=== PATIENT | female | born 1965 | race Caucasian/White ===

== ENCOUNTER 2020-10-04 01:29 | Outpatient (CLI) | payer BC, SELFPAY ==
[2020-10-05 03:00] LABS: SARS-CoV-2 RNA PCR Negative
== END 2020-10-04 01:30 | disposition home or self-care (01) ==
LOC: ANHCOVIDDT 01:29
PROVIDERS: PCP Internal Medicine; Visit Provider Internal Medicine Gastroenterology
DX: Z01.812 Encounter for preprocedural laboratory examination (principal); Z20.828 Contact with and (suspected) exposure to other viral communicable diseases
CPT/HCPCS: 87635; C9803; U0003

== ENCOUNTER 2020-10-06 02:09 | Day surgery (SDC) | payer BC, SELFPAY ==
[2020-10-03 14:49] VITALS: BMI 31.1
[2020-10-06] MEDS: LACTATED RINGERS 1,000 ML 150 ML IV CONT (09:03)
[2020-10-06 09:04] VITALS: BP 131/91; PULSE 69; RESP 18; TEMP 36.5; O2SAT 99; BMI 31.1
--- NOTE | 2020-10-06 09:16 | WPDANESEPPF ---
Anes - Initial Pre Proc Eval Procedure: Operation Date: 10/06/20 10:00 Proposed Procedures p Screening Colonoscopy - Wolf Nixon MD Date/Time: 10/06/20 09:16 Surgeon: Wolf Nixon MD Pre Op Diagnosis: Neoplasm Screening Patient Data Age: 55 Gender: F Height: 5 ft 8 in Weight: 93 kg Last Vital Signs Temp 36.5 C 10/06/20 09:04 Pulse 69 10/06/20 09:04 Resp 18 10/06/20 09:04 BP 131/91 H 10/06/20 09:04 Pulse Ox 99 10/06/20 09:04 Allergies Allergy/AdvReac Type Severity Reaction Status Date / Time No Known Allergies Allergy Unverified 10/06/20 08:48 Home Medications Medication Instructions Recorded Confirmed Type No Home Medications 10/06/20 10/06/20 History Patient hx anesthesia problems: none Family hx anesthesia problems: none PMFSH Surgical History Surgical History H/O bilateral breast reduction surgery Social History Social History Smoking status: Never smoker Alcohol intake: current Substance use: never Substance use type: does not use Living arrangements: with family Spiritual care concerns: No Anes - Eval Final PreProcedure Day of Procedure 10/06/20 09:16 Patient weight: obese Heart: regular rate and rhythm Lungs: clear to auscultation Airway: Mallampati scale class II Neurological: alert and oriented Last oral intake: >/= 8 hours ASA classification: II Emergent: no Anesthetic plan: proceed Anesthesia type and monitoring: general GIVS and standard monitoring Informed Consent: The patient's anesthetic plan and its attendant risks and benefits were discussed with the patient/family/POA. Questions were solicited and answers provided to the satisfaction of the patient/family/POA.
--- NOTE | 2020-10-06 09:24 | P.HP_ITS ---
History of Present Illness History of Present Illness Consent: Risks, benefits, and alternatives have been discussed and questions answered. Patient agrees to proceed with procedure. Chief complaint: Neoplasm Screening Narrative: Jennifer Strauss is a 55 year old female here for first screening colonoscopy Review of Systems Constitutional: Constitutional: Denies headache(s) and Denies weakness Eyes: Eyes: Denies blurry vision ENT: Reports Normal hearing present, Denies headache(s) and Denies neck pain Cardiovascular: Cardiovascular: Denies chest pain and Denies dyspnea Respiratory: Respiratory: Denies dyspnea Gastrointestinal: Gastrointestinal: Reports no additional gastrointestinal complaints Genitourinary: Genitourinary: Denies dysuria Musculoskeletal: Musculoskeletal: Denies neck pain Integumentary/Breasts: Skin/Breast: Denies dry skin Neurologic: Reports Normal hearing present, Denies headache(s) and Denies weakness Psychiatric: Psychiatric: Denies anxiety Endocrine: Endocrine: Denies change in body appearance Hematologic/Lymphatic: Hematologic/Lymphatic: Denies easy bleeding Allergic/Immunologic: Allergic/Immunologic: Denies urticaria [facility] Past Medical History Medical History (Updated 10/06/20 @ 09:29 by Wolf Nixon MD) Colon cancer screening Surgical History Surgical History H/O bilateral breast reduction surgery Social History Social History Smoking status: Never smoker Alcohol intake: current Substance use: never Substance use type: does not use Living arrangements: with family Spiritual care concerns: No Meds Home Medications and Allergies Home Medications Medication Instructions Recorded Confirmed Type No Home Medications 10/06/20 10/06/20 History Allergies Allergy/AdvReac Type Severity Reaction Status Date / Time No Known Allergies Allergy Unverified 10/06/20 08:48 Vital Signs Vital Signs - 24 hr 10/06/20 09:04 Temperature 97.7 F Pulse Rate 69 Respiratory Rate 18 Blood Pressure 131/91 H Pulse Oximetry 99 Exam Const: General: comfortable and no acute distress HENMT: General nose exam: Normal nares present Eyes: General: appearance normal, both eyes and all related structures Neck: Neck: no JVD Resp: Auscultation: clear to auscultation bilaterally Cardio: Rate: regular rate Rhythm: regular rhythm GI: Inspection: non-distended GI Palp: Yes Soft to palpation Skin: General skin exam: normal color Neuro: General: gait normal Speech: normal speech Extrem: General: normal to inspection Psych: Mental Status: mental status grossly normal Assessment and Plan Assessment and plan (1) Colon cancer screening: Code(s): Z12.11 - Encounter for screening for malignant neoplasm of colon Status: Acute Assessment and Plan: will proceed with colonoscopy
[2020-10-06 09:54] VITALS: BP 106/57; PULSE 62; RESP 16; O2SAT 97
[2020-10-06 10:04] VITALS: BP 102/63; PULSE 60; RESP 16; O2SAT 97
[2020-10-06 10:14] VITALS: BP 108/53; PULSE 62; RESP 18; O2SAT 98
== END 2020-10-06 10:30 | disposition home or self-care (01) ==
PROVIDERS: PCP Internal Medicine; Visit Provider Internal Medicine Gastroenterology
PROC: 0DJD8ZZ Inspection of Lower Intestinal Tract, Via Natural or Artificial Opening Endoscopic (ICD-10-PCS; CPT 45378; principal; 2020-10-06 10:00)
DX: Z12.11 Encounter for screening for malignant neoplasm of colon (principal); D12.0 Benign neoplasm of cecum; D12.3 Benign neoplasm of transverse colon
CPT/HCPCS: 45385; 45381; 88305; J2704; J7120

== ENCOUNTER 2021-01-02 00:15 | Emergency (ER) | payer OTHER, BC, SELFPAY ==
--- NOTE | ~2021-01-02 | XR_ITS ---
XR lumbar spine 2-3V DATE: 01/02/2021 01:07 INDICATION: Heavy boxes landed on patient's back, causing patient to fall. Back pain. TECHNIQUE: AP, lateral, coned lateral lumbosacral views COMPARISON: None FINDINGS: Normal alignment of the lumbar spine. No fracture or bone destruction or spondylolisthesis. There is diffuse osteopenia. Mild osteoarthritis At L5-S1. The remaining lumbar interspaces are well preserved. The sacroiliac joints are intact. IMPRESSION: Osteopenia; no evidence of lumbar spine fracture Reviewed, dictated and finalized at location A. [employer]
[2021-01-02 00:23] VITALS: BP 134/87; PULSE 75; RESP 16; TEMP 36.6; O2SAT 96
[2021-01-02 00:32] LABS: Glucose Point of Care 497 (65-105)
[2021-01-02] MEDS: KETOROLAC 30 MG/ML VIAL (*BKC) IV PUSH (01:08)
[2021-01-02] MEDS: diazePAM INJ (*CRX) 10 MG/2 ML SYRINGE 5 MG IV PUSH (01:18)
--- NOTE | 2021-01-02 03:13 | ED.FALL ---
HPI - Fall General Chief Complaint: Fall Stated Complaint: lower back pain; boxes fell on back Time Seen by Provider: 01/02/21 00:17 History of Present Illness HPI Narrative: Patient is a 55-year-old female who presents ER with low back pain. Patient was working local [employer] is when she turned around and was struck in the back by boxes containing computer desk. Encouraged her to jerk move forward. She developed pain in her low back. Reports she feels like she is having spasms. No radiation. No numbness or tingling to the lower extremities or groin. Has not taken any pain medication. Did not strike her head or lose consciousness. Related Data Allergies Allergy/AdvReac Type Severity Reaction Status Date / Time No Known Allergies Allergy Unverified 10/06/20 08:48 Review of Systems Gastrointestinal: Gastrointestinal: Denies nausea and Denies vomiting Musculoskeletal: Musculoskeletal: Reports back pain, Denies arthralgias, Denies joint swelling and Reports muscle cramps Neurologic: Denies syncope, Denies headache(s), Denies focal weakness and Denies numbness PMFSH Past Medical History Medical History (Updated 01/02/21 @ 03:16 by Roberth Peng MD) Colon cancer screening Surgical History Surgical History H/O bilateral breast reduction surgery Social History Social History Smoking status: Never smoker Alcohol intake: current Substance use: never Substance use type: does not use Spiritual care concerns: No Exam Narrative: Exam Narrative: GENERAL: Well-appearing, well-nourished, and in no acute distress. HEAD: Normocephalic, atraumatic. CHEST: Clear to auscultation. No respiratory distress. HEART: Regular rate and rhythm. Normal peripheral pulses. EXTREMITIES: Normal range of motion. No edema. Back: Midline tenderness of L2 and L5 as well as bilateral paraspinal muscular tenderness in this region. SKIN: Warm, dry, no rash. NEURO: No focal deficits. Alert and oriented x3. PSYCH: Normal mood and affect. Course Course Emergency Course: Pain markedly improved with Valium and Toradol. Discharge home with supportive care. Vital Signs Vital signs: Vital Signs Temperature 97.8 F 01/02/21 00:23 Pulse Rate 75 02/02/21 00:23 Respiratory Rate 16 01/02/21 00:23 Blood Pressure 134/87 01/02/21 00:23 Pulse Oximetry 96 01/02/21 00:23 Temperature 97.8 F 01/02/21 00:23 Pulse Rate 75 01/02/21 00:23 Respiratory Rate 16 01/02/21 00:23 Blood Pressure 134/87 01/02/21 00:23 Pulse Oximetry 96 01/02/21 00:23 MDM - Fall Lab Data Labs: Lab Results 01/02/21 Range/Units 00:29 POC Capillary Glucose 497 H (65-105) mg/dl Imaging Data My impression: X-ray lumbar: No acute process. Discharge Plan Discharge Clinical Impression: Low back strain Patient Disposition: Home, Self-Care Condition: Stable Instructions: Low Back Strain (ED) Additional Instructions: Return to the ER if you have increased pain in your back, you develop lower extremity weakness/numbness/paralysis, you have numbness or tingling in your private parts, or you are unable to control your ability to urinate/stool. Prescriptions: New cyclobenzaprine 10 mg tablet 10 mg PO TID PRN (Reason: muscle spasm) Qty: 20 RF: 0 naproxen 500 mg tablet 500 mg PO BID Qty: 14 RF: 0 Follow-up/Referrals: Mo Stephenson MD [Primary Care Provider] - 1 Week
[2021-01-02 03:20] VITALS: BP 128/78; PULSE 71; RESP 16; O2SAT 98
== END 2021-01-02 03:20 | disposition home or self-care (01) ==
PROVIDERS: Emergency Provider Emergency Medicine; PCP Internal Medicine
DX: S39.012A Strain of muscle, fascia and tendon of lower back, initial encounter (principal); W22.8XXA Striking against or struck by other objects, initial encounter
CPT/HCPCS: 72100; 82948; 96374; 96375; 99284; J1885; J3360

== ENCOUNTER 2025-08-22 09:25 | Inpatient (IN) | payer BC, SELFPAY ==
--- NOTE | ~2025-08-22 | XR_ITS ---
EXAMINATION: XR toe 1st LT min 2V, 08/22/2025 10:35 CDT HISTORY: diabetic ulcer/cellulitis x1 WEEK COMPARISON: No comparisons available. Findings: There are destructive changes noted of the distal aspect distal phalanx. No significant degenerative changes. Soft tissues unremarkable. Impression: Osteomyelitis Reviewed, dictated and finalized at location A. Impression: Osteomyelitis
[2025-08-22 09:33] VITALS: BP 112/88; PULSE 87; RESP 18; TEMP 36.4; O2SAT 99
--- OUTSIDE RECORDS SUMMARY | 2025-08-22 10:17 | XMS_ITS | Clinical Summary ---
Author Organization [facility] [address] Address [address] [place] [address] Care Team Providers Care Iron Bender Name Role Phone Marlon Jeronimo MD Primary Care Provider [phone] Allergies No known active allergies Medications No known medications Social History Tobacco Use Types Packs/Day Years Used Date Smoking Tobacco: Never Smokeless Tobacco: Never Alcohol Use Standard Drinks/Week Comments Yes 0 (1 standard drink = 0.6 oz pur e alcohol) occasional Comments No Sex and Gender Information Value Date Recorded Sex Assigned at Not on file Legal Sex Female 1:19 PM POLICE SHIFT COMMANDER Gender Identity Not on file Sexual Orientation Not on file Last Filed Vital Signs Vital Sign Reading Time Taken Comments Blood Pressure 139/90 11/25/2018 1:58 PM POLICE SHIFT COMMANDER Pulse - - Temperature 36.3 C (97.4 F) 11/25/2018 1:58 PM POLICE SHIFT COMMANDER Respiratory Rate 16 11/25/2018 1:58 PM POLICE SHIFT COMMANDER Oxygen Saturation 100% 11/25/2018 1:58 PM POLICE SHIFT COMMANDER Inhaled Oxygen Concentration - - Weight 99.8 kg (220 lb) 11/25/2018 1:58 PM POLICE SHIFT COMMANDER Height 172.7 cm (5' 8) 11/25/2018 1:58 PM POLICE SHIFT COMMANDER Body Mass Index 33.45 11/25/2018 1:58 PM POLICE SHIFT COMMANDER Plan of Treatment Health Maintenance Due Date Last Done Comments DTAP/TDAP/TD VACCINES (1 - Tdap) 1986 HEPATITIS B VACCINES (1 of 3 - 19+ 3-dose series) 05/01 HPV/Cotest (21-29) 1988 CERVICAL CANCER SCREENING 1997 HPV/Cotest (30-65) 1997 PAP SMEAR 1997 BREAST CANCER SCREENING 2007 COLORECTAL SCREENING 2012 Colorectal Cancer Screening 2012 FIT-DNA Q 3 years 2012 FIT/FOBT Q 1 year 2012 Flex Sig/CT Colonography Q 5 years 2012 ZOSTER VACCINE (1 of 2) 2017 INFLUENZA VACCINE (#1) 2025 [place] [address] BCBS BLUE ACCESS/TRUE BLUE PPO Care Teams Iron Bender Relationship Specialty Start Date End Date Marlon Jeronimo MD [address] [facility] [address] [place] [address] PCP - General Internal Medicine 11/25/18
--- OUTSIDE RECORDS SUMMARY | 2025-08-22 10:17 | XMS_ITS | Clinical Summary ---
Author Organization [facility] Address [address] [place] [address] Care Team Providers Care Information Technology Advisor Name Role Phone Ki Rodriguez MD Primary Care Provider [phone] Source Comments [facility],non-owned Affiliates and Associated Physician Practices is amultiple site organization consisting of ambulatory clinics and hospital sitesin [place], [place], [place]. This disclosure is being madepursuant to the Care Everywhere program and may not contain all information available regarding this patient. Last updated 18.[facility] [employer] Social History Tobacco Use Types Packs/Day Years Used Date Smoking Tobacco: Never Assessed Comments Unknown Sex and Gender Information Value Date Recorded Sex Assigned at Not on file Legal Sex Female 6:15 AM RIG HAND Gender Identity Not on file Sexual Orientation Not on file Last Filed Vital Signs Vital Sign Reading Time Taken Comments Blood Pressure - - Pulse - - Temperature - - Respiratory Rate - - Oxygen Saturation - - Inhaled Oxygen Concentration - - Weight 109.3 kg (241 lb) 08/17/2015 9:24 AM CDT Height 167.6 cm (5' 6) 08/17/2015 9:24 AM CDT Body Mass Index 38.9 08/17/2015 9:24 AM CDT Plan of Treatment Health Maintenance Due Date Last Done Comments COLOGUARD (AGES 45-75) - COL ON CA SCREENING 1967 COLON MONITORING 1967 COLONOSCOPY - COLON CA SCREENING 1967 CT COLONOGRAPHY - COLON CA SCREENING 1967 Colorectal Cancer Screening 1967 FIT - COLON CA SCREENING 1967 FLEX SIG - COLON CA SCREENING 1967 LIPID TESTING 1967 MAMMOGRAM 1967 HIV SCREENING 1982 HEPATITIS C SCREENING 05/13/1985 DTAP/TDAP/TD VACCINES (1 - Tdap) 1986 HEPATITIS B VACCINE (1 of 3 - 19+ 3-dose series) 1986 PNEUMOCOCCAL VACCINE 50+ (1 of 1 - PCV) 2017 ZOSTER VACCINE (1 of 2) 2017 DEPRESSION SCREENING 12/01/2024 COVID-19 VACCINE (1 - 2023-2 5 season) 2025 INFLUENZA VACCINE (#1) 2025 HIB VACCINE Aged Out No longer eligi ble based on patient's age to complete this topic HPV VACCINE Aged Out No longer eligi ble based on patient's age to complete this topic MENINGOCOCCAL (Group B) VACC INE SHARED DECISION-MAKING Aged Out No longer eligibl e based on patient's age to complete this topic MENINGOCOCCAL GROUPS A/C/Y/W VACCINE Aged Out No longer eligible b ased on patient's age to complete this topic Insurance Care Teams Information Technology Advisor Relationship Specialty Start Date End Date Ki Rodriguez MD [address] [place], [place] [address] [place] [address] PCP - General Internal Medicine 08/04/15
[2025-08-22 10:57] LABS: Hematocrit 44.1 % (37.0-47.0); Hemoglobin 14.5 g/dL (12.0-15.0); Immature Granulocyte Percent A 0.4 % (0-0.5); Lymphocytes Absolute Auto 2.34 K/mm3 (0.9-3.2); Mean Corpuscular HGB Conc 32.9 g/dl (32-36); Mean Corpuscular Hemoglobin 28.3 pg (26-34); Mean Corpuscular Volume 86.0 fl (80-100); Nucleated Red Blood Cells Absolute Auto 0.000 K/mm3 (0.0-0.012); Nucleated Red Blood Cells Perc 0.0 % (0.0-0.2); Platelet Count Result 293 k/mm3 (150-375); Red Blood Count 5.13 M/mm3 (4.2-5.4); White Blood Count 8.5 K/mm3 (4.5-10.0)
--- NOTE | 2025-08-22 11:03 | ED_ITS ---
HPI - Extremity Problem General Chief complaint: Extremity Problem,Nontraumatic <CLARI Lewis Last Filed: 08/22/25 18:49> Stated complaint: left big toe numbness and discoloration <CLARI Lewis Last Filed: 08/22/25 18:49> Time Seen by Provider: 08/22/25 09:43 <CLARI Lewis Last Filed: 08/22/25 18:49> Source: patient <CLARI Lewis Last Filed: 08/22/25 18:49> Mode of arrival: ambulatory <CLARI Lewis Last Filed: 08/22/25 18:49> Limitations: no limitations <CLARI Lewis Last Filed: 08/22/25 18:49> History of Present Illness HPI Narrative: Patient is a 60-year-old female, with PMH of DM, peripheral neuropathy, who presents the ED with report of a wound to her left 1st toe. Patient reports she 1st noticed a wound to the tip of her left 1st toe 1 week ago. States it has continued to worsen. Reports drainage, diffuse swelling/redness of 1st toe. States her blood sugars have been under control, under 120. Denies significant pain due to history of neuropathy. Denies fevers. <CLARI Lewis Last Filed: 08/22/25 18:49> Related Data Allergies/Adverse reactions: Allergies Allergy/AdvReac Type Severity Reaction Status Date / Time No Known Allergies Allergy Verified 08/22/25 09:35 <CLARI Lewis Last Filed: 08/22/25 18:49> Review of Systems 2 Review of Systems: All systems reviewed & are unremarkable except as noted in HPI. <CLARI Lewis Last Filed: 08/22/25 18:49> All systems reviewed & are unremarkable except as noted in HPI and below < CLARI Lewis Last Filed: 08/22/25 18:49> [facility] Past Medical History Medical History: Medical History Rosacea Diabetes mellitus with neuropathy Hyperlipidemia associated with type 2 diabetes mellitus Diabetes mellitus with hyperglycemia <Alice Solorio PA-C - Last Filed: 08/22/25 18:49> Surgical History Surgical History: Surgical History Previous back surgery H/O bilateral breast reduction surgery <Alice Solorio PA-C - Last Filed: 08/22/25 18:49> Social History Social History: Social History Smoking status: Never smoker Alcohol intake: never Substance use: never Substance use type: does not use Lack of Transportation: No Lack of Food: Never True Current Housing: I Have Housing Concerned About Future Housing: No Difficulty Paying Gas/Electric Bills: No Difficulty Paying for Meds: No Currently Unemployed: No Education: High School Diploma/GED Difficulty w/ Childcare or Family Care: No Living arrangements: with family Spiritual care concerns: No <Alice Solorio PA-C - Last Filed: 08/22/25 18:49> Exam 2 Narrative: GENERAL: Well appearing, well-nourished, non-toxic, in no acute distress. HEAD: Normocephalic, atraumatic. RESPIRATORY: Airway patent, respirations nonlabored. CARDIOVASCULAR: Regular rate and rhythm. Pedal pulses are intact and easily palpable. MUSCULOSKELETAL: Moves all extremities. No gross deformities. Diffuse swelling/ erythema throughout left 1st toe. Approximately 1 cm oval-shaped ulcerative wound to distal tip of left 1st toe pad. Subq tissue exposed. Callous formation around toe and ulcer. Small amount of purulent drainage from ulcer. No wounds appreciated on remainder of left toes. SKIN: Warm, dry, normal color. NEURO: A&O X3. Speech clear. No ataxic movements. PSYCHIATRIC: Appropriate mood and affect. Normal interaction. <Alice Solorio PA-C - Last Filed: 08/22/25 18:49> Course POT PULLER/PA Physician Supervision This visit was performed by both a physician and an APC. I performed all aspects of the MDM as documented. <Roberth Peng MD - Last Filed: 08/22/25 18:25> Vital Signs Vital signs: Vital Signs Temperature 97.6 F 08/22/25 09:33 Pulse Rate 87 08/22/25 09:33 Respiratory Rate 18 08/22/25 09:33 Blood Pressure 112/88 08/22/25 09:33 Pulse Oximetry 99 08/22/25 09:33 Oxygen Delivery Room Air 08/22/25 09:33 Temperature 97.2 F L 08/22/25 14:33 Pulse Rate 78 08/22/25 14:33 Respiratory Rate 18 08/22/25 14:33 Blood Pressure 137/86 08/22/25 14:33 Pulse Oximetry 100 08/22/25 14:33 Oxygen Delivery Room Air 08/22/25 09:33 <Alice Solorio PA-C - Last Filed: 08/22/25 18:49> Vital Signs Temperature 97.6 F 08/22/25 09:33 Pulse Rate 87 08/22/25 09:33 Respiratory Rate 18 08/22/25 09:33 Blood Pressure 112/88 08/22/25 09:33 Pulse Oximetry 99 08/22/25 09:33 Oxygen Delivery Room Air 08/22/25 09:33 Temperature 97.2 F L 08/22/25 14:33 Pulse Rate 78 08/22/25 14:33 Respiratory Rate 18 08/22/25 14:33 Blood Pressure 137/86 08/22/25 14:33 Pulse Oximetry 100 08/22/25 14:33 Oxygen Delivery Room Air 08/22/25 09:33 <Roberth Peng MD - Last Filed: 08/22/25 18:25> MDM - Extremity (Nontraumatic) MDM Narrative Medical decision making narrative: Patient presented to ED with wound to left 1st toe for the past 1 week. History of diabetes. Vital signs are stable upon arrival. Patient is afebrile here. Ulcer wound to left 1st toe with diffuse swelling and erythema throughout toe. Appears frankly infected. Cbc without leukocytosis. Lactic acid WNL. Inflammatory markers also WNL. BG on CMP 127. A1c 6.8%. X-ray of left foot showing osteomyelitis of left 1st toe. Blood cx obtained. Patient given abx in the ED for infected diabetic ulcer. Discussed case with Dr. Orellana, general surgery, will consult Discussed case with Ivanna Aburto NP hospitalist, accepted patient for admission. <Alice Solorio PA-C - Last Filed: 08/22/25 18:49> Medical Records Attestation: I reviewed the patient's medical records. <Alice Solorio PA-C - Last Filed: 08/22/25 18:49> Lab Data Attestation: I reviewed the patient's lab results. <Alice Solorio PA-C - Last Filed: 08/22/25 18:49> Result diagrams: 08/22/25 10:50 08/22/25 10:50 <Alice Solorio PA-C - Last Filed: 08/22/25 18:49> Labs: Lab Results 08/22/25 Range/Units 10:50 WBC 8.5 (4.5-10.0) K/mm3 RBC 5.13 (4.2-5.4) M/mm3 Hgb 14.5 (12.0-15.0) g/dL Hct 44.1 (37.0-47.0) % MCV 86.0 (80-100) fl MCH 28.3 (26-34) pg MCHC 32.9 (32-36) g/dl RDW 13.1 (11.5-14.5) % Plt Count 293 (150-375) k/mm3 MPV 9.5 (7.4-10.4) fl Immature Gran % (Auto) 0.4 (0-0.5) % Neut % (Auto) 56.6 (45.5-73.1) % Lymph % (Auto) 27.7 (18.3-44.2) % [place] % (Auto) 7.1 (2.6-8.5) % Eos % (Auto) 7.3 H (0-4.4) % Baso % (Auto) 0.9 (0.2-1.2) % Lymph # (Auto) 2.34 (0.9-3.2) K/mm3 [place] # (Auto) 0.6 (0.1-0.6) K/mm3 Eos # (Auto) 0.6 H (0-0.3) K/mm3 Baso # (Auto) 0.1 (0.0-0.1) K/mm3 Abs Immat Gran (auto) 0.03 (0.00-0.031) K/mm3 Absolute Neuts (auto) 4.8 (1.3-6.7) K/mm3 Absolute Nucleated RBC 0.000 (0.0-0.012) K/mm3 Nucleated RBC % 0.0 (0.0-0.2) % ESR 15 (0-20) mm/hr PT 14.1 (11.1-14.7) Seconds INR 1.1 APTT 25.3 (22.3-36.8) Seconds Sodium 138 (137-145) mmol/L Potassium 4.4 (3.4-5.0) mmol/L Chloride 102 (98-107) mmol/L Carbon Dioxide 26 (22-30) mmol/L Anion Gap 10 (4-12) mmol/L BUN 18 H (7-17) mg/dL Creatinine 0.80 (0.7-1.0) mg/dL Estim Creat Clear Calc 67 ml/min Estimated GFR > 60 (59 - ) Glucose 127 H (65-110) mg/dL Hemoglobin A1c 6.8 H (<5.7) % Lactic Acid 0.8 (0.7-2.0) mmol/L Calcium 9.1 (8.4-10.2) mg/dL Total Bilirubin 1.5 H (0.2-1.3) mg/dL AST 24 (14-36) U/L ALT 17 (6-35) U/L Alkaline Phosphatase 88 (38-126) U/L C-Reactive Protein 0.5 (<1.0) mg/dL Total Protein 8.0 (6.3-8.2) g/dL Albumin 4.3 (3.5-5.1) g/dL <Alice Solorio PA-C - Last Filed: 08/22/25 18:49> Lab Results 08/22/25 Range/Units 10:50 WBC 8.5 (4.5-10.0) K/mm3 RBC 5.13 (4.2-5.4) M/mm3 Hgb 14.5 (12.0-15.0) g/dL Hct 44.1 (37.0-47.0) % MCV 86.0 (80-100) fl MCH 28.3 (26-34) pg MCHC 32.9 (32-36) g/dl RDW 13.1 (11.5-14.5) % Plt Count 293 (150-375) k/mm3 MPV 9.5 (7.4-10.4) fl Immature Gran % (Auto) 0.4 (0-0.5) % Neut % (Auto) 56.6 (45.5-73.1) % Lymph % (Auto) 27.7 (18.3-44.2) % [place] % (Auto) 7.1 (2.6-8.5) % Eos % (Auto) 7.3 H (0-4.4) % Baso % (Auto) 0.9 (0.2-1.2) % Lymph # (Auto) 2.34 (0.9-3.2) K/mm3 [place] # (Auto) 0.6 (0.1-0.6) K/mm3 Eos # (Auto) 0.6 H (0-0.3) K/mm3 Baso # (Auto) 0.1 (0.0-0.1) K/mm3 Abs Immat Gran (auto) 0.03 (0.00-0.031) K/mm3 Absolute Neuts (auto) 4.8 (1.3-6.7) K/mm3 Absolute Nucleated RBC 0.000 (0.0-0.012) K/mm3 Nucleated RBC % 0.0 (0.0-0.2) % ESR 15 (0-20) mm/hr PT 14.1 (11.1-14.7) Seconds INR 1.1 APTT 25.3 (22.3-36.8) Seconds Sodium 138 (137-145) mmol/L Potassium 4.4 (3.4-5.0) mmol/L Chloride 102 (98-107) mmol/L Carbon Dioxide 26 (22-30) mmol/L Anion Gap 10 (4-12) mmol/L BUN 18 H (7-17) mg/dL Creatinine 0.80 (0.7-1.0) mg/dL Estim Creat Clear Calc 67 ml/min Estimated GFR > 60 (59 - ) Glucose 127 H (65-110) mg/dL Hemoglobin A1c 6.8 H (<5.7) % Lactic Acid 0.8 (0.7-2.0) mmol/L Calcium 9.1 (8.4-10.2) mg/dL Total Bilirubin 1.5 H (0.2-1.3) mg/dL AST 24 (14-36) U/L ALT 17 (6-35) U/L Alkaline Phosphatase 88 (38-126) U/L C-Reactive Protein 0.5 (<1.0) mg/dL Total Protein 8.0 (6.3-8.2) g/dL Albumin 4.3 (3.5-5.1) g/dL <Roberth Peng MD - Last Filed: 08/22/25 18:25> Imaging Data Attestation: I personally reviewed and interpreted this imaging study as follows: < Alice Solorio PA-C - Last Filed: 08/22/25 18:49> Radiologist's impression: ITS Impressions Toe X-Ray 08/22/25 10:42 Impression: Osteomyelitis <Alice Solorio PA-C - Last Filed: 08/22/25 18:49> Discharge Plan Discharge Clinical Impression: Osteomyelitis of great toe of left foot Diabetic ulcer of toe Qualifiers: Diabetes mellitus type: type 2 Laterality: left Non-pressure ulcer stage: with bone involvement without evidence of necrosis Qualified Code(s): E11.621 - Type 2 diabetes mellitus with foot ulcer <Alice Solorio PA-C - Last Filed: 08/22/25 18:49> Patient Disposition: Still a Patient <Alice Solorio PA-C - Last Filed: 08/22/25 18:49> Condition: Stable <CLARI Lewis Last Filed: 08/22/25 18:49>
[2025-08-22 11:08] LABS: INR 1.1; Prothrombin Time 14.1 Seconds (11.1-14.7)
[2025-08-22 11:09] LABS: Partial Thromboplastin Time 25.3 Seconds (22.3-36.8)
[2025-08-22 11:11] LABS: Alanine Aminotransferase 17 U/L (6-35); Albumin Level 4.3 g/dL (3.5-5.1); Alkaline Phosphatase 88 U/L (38-126); Anion Gap 10 mmol/L (4-12); Aspartate Amino Transferase 24 U/L (14-36); Bilirubin,Total 1.5 mg/dL (0.2-1.3); Blood Urea Nitrogen 18 mg/dL (7-17); CRP 0.5 mg/dL (<1.0); Calcium 9.1 mg/dL (8.4-10.2); Carbon Dioxide 26 mmol/L (22-30); Chloride 102 mmol/L (98-107); Estimated CRCL calculation 67 ml/min; Estimated Glomerular Filt Rate > 60; Glucose 127 mg/dL (65-110); Potassium 4.4 mmol/L (3.4-5.0); Sodium 138 mmol/L (137-145); Total Protein 8.0 g/dL (6.3-8.2)
[2025-08-22] MEDS: CEFEPIME 2 GM in SODIUM CHLORIDE 0.9% IV 50 ML 100 ML IVPB ×2 (11:28→23:04)
[2025-08-22 11:39] LABS: Hemoglobin A1C 6.8 % (<5.7)
[2025-08-22] MEDS: metroNIDAZOLE 500 MG/ISO 100ML 500 MG/100 ML BAG 100 MG IVPB ×2 (12:05→21:47)
--- OUTSIDE RECORDS SUMMARY | 2025-08-22 12:32 | XMS_ITS | Clinical Summary ---
Author Organization [facility] [address] Address [address] [place] [address] Care Team Providers Care Clinical Document Improvement Educator Name Role Phone Marlon Jeronimo MD Primary Care Provider [phone] Allergies No known active allergies Medications No known medications Social History Tobacco Use Types Packs/Day Years Used Date Smoking Tobacco: Never Smokeless Tobacco: Never Alcohol Use Standard Drinks/Week Comments Yes 0 (1 standard drink = 0.6 oz pur e alcohol) occasional Comments No Sex and Gender Information Value Date Recorded Sex Assigned at Not on file Legal Sex Female 1:19 PM CO OP Gender Identity Not on file Sexual Orientation Not on file Last Filed Vital Signs Vital Sign Reading Time Taken Comments Blood Pressure 139/90 11/25/2018 1:58 PM CO OP Pulse - - Temperature 36.3 C (97.4 F) 11/25/2018 1:58 PM CO OP Respiratory Rate 16 11/25/2018 1:58 PM CO OP Oxygen Saturation 100% 11/25/2018 1:58 PM CO OP Inhaled Oxygen Concentration - - Weight 99.8 kg (220 lb) 11/25/2018 1:58 PM CO OP Height 172.7 cm (5' 8) 11/25/2018 1:58 PM CO OP Body Mass Index 33.45 11/25/2018 1:58 PM CO OP Plan of Treatment Health Maintenance Due Date [...] 2) 2017 INFLUENZA VACCINE (#1) 2025 [place] [address] BCBS BLUE ACCESS/TRUE BLUE PPO Care Teams Clinical Document Improvement Educator Relationship Specialty Start Date End Date Marlon Jeronimo MD [address] [facility] [[email or web address]] [address] [place] [address] PCP - General Internal Medicine 11/25/18
--- OUTSIDE RECORDS SUMMARY | 2025-08-22 12:32 | XMS_ITS | Clinical Summary ---
Author Organization [facility] Address [address] [place] [address] Care Team Providers Care Talent Acquisition Assistant Name Role Phone Ki Rodriguez MD Primary Care Provider Source Comments [facility],non-owned Affiliates and Associated Physician Practices is amultiple site organization consisting of ambulatory clinics and hospital sitesin [place], [place], [place] and [place]. This disclosure is being madepursuant to the Care Everywhere program and may not contain all information available regarding this patient. 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
--- NOTE | 2025-08-22 13:05 | PCWOUND ---
WOCN NOTE Spoke with Belem Hernandez RETIREMENT MANAGER for Dr. Orellana. economic forecaster not needed to see patient. Surgery to follow wound and place orders.
--- NOTE | 2025-08-22 13:07 | P.HP_ITS ---
H&P: HPI History of Present Illness Date/Time: 08/22/25 13:07 Chief Complaint: Toe Wound Narrative: 60 y/o F with PMH of diabetes, peripheral neuropathy, and hyperlipidemia presents here with a wound to her left big toe. The patient presents here from home on 08/22 for further evaluation of a wound to her left 1st toe. She reports discovery of wound approximately 1 week ago to the tip of her 1st left toe. She denies any known precipitating symptoms. Has poor to no feeling in her feet bilaterally secondary to neuropathy. She reports since noticing it in has continued to worsen and has developed drainage, swelling, and redness. She does not check her feet regularly, but does normally where closed toed shoes when she is awake. She has a history significant for diabetes a reports her glucose at home has been controlled as of late, has remained under 120 at home. She denies previous history of diabetic foot wounds/ulcerations or osteomyelitis. She denies associated fevers, chills, body aches, or diaphoresis. Initial VS at presentation: 97.6? F, HR 87, R 18, 112/88, and 99% on RA. ED workup showed: No leukocytosis, no anemia, normal coags, no significant electrolyte derangements, creatinine 0.8 and GFR >60, glucose 127, A1c 6.8%, lactic 0.8, CRP 0.5. Left toe XR showed osteomyelitis. Review of Systems Review of Systems: All systems reviewed & are unremarkable except as noted in HPI and below PMFSH Past Medical History Medical History Rosacea Diabetes mellitus with neuropathy Hyperlipidemia associated with type 2 diabetes mellitus Diabetes mellitus with hyperglycemia Surgical History Surgical History Previous back surgery H/O bilateral breast reduction surgery Social History Social History Smoking status: Never smoker Alcohol intake: never Substance use: never Substance use type: does not use Lack of Transportation: No Lack of Food: Never True Current Housing: I Have Housing Concerned About Future Housing: No Difficulty Paying Gas/Electric Bills: No Difficulty Paying for Meds: No Currently Unemployed: No Education: High School Diploma/GED Difficulty w/ Childcare or Family Care: No Living arrangements: with family Spiritual care concerns: No Meds Home Medications and Allergies Home Medications ?Medication ?Instructions ?Recorded ?Confirmed ?Type blood-glucose meter (Accu-Chek #1 ea 03/15/25 08/22/25 Rx Guide Glucose Meter) lancets (Accu-Chek Softclix #100 ea 04/19/25 08/22/25 Rx Lancets) insulin glargine 100 unit/mL 40 unit (0.4 mL) subcut D AILY #10 06/06/25 08/22/25 Rx subcutaneous solution (Lantus mL U-100 Insulin) blood sugar diagnostic (Accu-Chek #100 ea 07/24/25 Rx Guide test strips) tirzepatide 15 mg/0.5 mL 15 mg (0.5 mL) subcut WEEKLY #2 mL 08/03/25 08/22/25 Rx subcutaneous pen injector Allergies Allergy/AdvReac Type Severity Reaction Status Date / Time No Known Allergies Allergy Verified 08/22/25 09:35 Vital Signs Vital Signs - 24 hr 08/22/25 09:33 Temperature 97.6 F Pulse Rate 87 Respiratory Rate 18 Blood Pressure 112/88 Pulse Oximetry 99 Oxygen Delivery Room Air Exam Const: General: comfortable and no acute distress Other: , female, nontoxic appearance HENMT: Face/Nose/Sinus: Normal nares present Mouth: Yes moist mucous membranes Eyes: General: appearance normal, both eyes and all related structures Sclera: sclerae normal Pupils: Equal, round and reactive pupils present EOM: EOMs intact bilaterally Resp: Effort & Inspection: normal respiratory effort Auscultation: clear to auscultation bilaterally Cardio: Rate: regular rate Rhythm: regular rhythm Other: S1-S2 present without murmur, rub, ectopy GI: Other: Abdomen soft, nondistended, nontender. Normoactive bowel sounds in all quadrants. Skin: General skin exam: normal color and no rashes or lesions noted Other: approx 1x1 cm, yellow wound bed with purulent drainage and mild surrounding erythema. +odor. Neuro: Speech: normal speech Motor exam (neuro): 5/5 motor strength present throughout Sensory Exam: normal sensation Other: A&O x4 Extrem: General: normal exam except as noted Psych: Mental Status: mental status grossly normal Affect: normal affect Other: Good insight and judgment, very pleasant H&P: Results Labs Labs: Short CBC 08/22/25 Range/Units 10:50 WBC 8.5 (4.5-10.0) K/mm3 Hgb 14.5 (12.0-15.0) g/dL Hct 44.1 (37.0-47.0) % Plt Count 293 (150-375) k/mm3 BMP 08/22/25 10:50 Sodium 138 Potassium 4.4 Chloride 102 Carbon Dioxide 26 BUN 18 H Creatinine 0.80 Glucose 127 H Calcium 9.1 Liver Function 08/22/25 Range/Units 10:50 Total Bilirubin 1.5 H (0.2-1.3) mg/dL AST 24 (14-36) U/L ALT 17 (6-35) U/L Alkaline Phosphatase 88 (38-126) U/L Albumin 4.3 (3.5-5.1) g/dL Assessment and Plan Assessment and plan (1) Osteomyelitis of great toe of left foot: Code(s): M86.9 - Osteomyelitis, unspecified Status: Acute Assessment and Plan: - did not meet SIRS criteria. however blood cultures were obtained in the ED on 08/22, follow. Lactic 0.8 upon admission. - left toe XR showed osteomyelitis on 08/22 - left toe infection complicated by diabetes, A1c 6.8% and per patient blood sugars have been controlled at home - started on cefepime, vancomycin, and Flagyl on 08/22 - general surgery consulted, recommended: Discussed 6 weeks of antibiotics with wound care versus surgical management with a partial left great toe amputation, patient abdomen she would like to avoid surgery and prefers antibiotics Continue broad-spectrum antibiotics Start Santyl dressings for local wound care - wound RN consulted >> not needed per General surgery - check wound culture - no leukocytosis noted upon admission, monitor - analgesics p.r.n.: Tylenol, Maroa, Morphine p.r.n. 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 Code(s): E11.40 - Type 2 diabetes mellitus with diabetic neuropathy, unspecified Status: Chronic Assessment and Plan: - currently complicated, see above - hypoglycemia protocol - POC blood glucose ACHS - home medication: Continue Lantus 40 units subQ daily, hold Tirzepatide (NF) - correct regimen ordered - moderate dose TIDWM, based off BMI - A1C 6.8% on 08/22/25 Plan Diet: Diabetic GI Prophylaxis: N/a DVT Prophylaxis: SCDs IV fluids: None Lines/Tubes: Peripheral IV Code Status: Full code Quality VTE Prophylaxis VTE prophylaxis: mechanical ordered Hospitalist [facility] Advance Care Plan I have confirmed that the patient's Advanced Care Plan is present, code status is documented, or surrogate decision maker is listed in patient medical record.: Yes Medication Reconciliation I have utilized all available resources to obtain, update and review the patients current medications (includes all prescriptions, OTC, herbals, cannabis, and nutritional supplements).: Yes
--- NOTE | 2025-08-22 13:18 | P.CONGS_ITS ---
Assessment and Plan Assessment and plan (1) Osteomyelitis of great toe of left foot: Code(s): M86.9 - Osteomyelitis, unspecified Status: Acute Assessment and Plan: * Left great toe infection with X-ray evidence of osteomyelitis of the distal portion of the distal phalanx. Discussed both nonoperative treatment with a longer course of 6 weeks of antibiotics with wound care vs. surgical management with a partial left great toe amputation. The patient is adamant about avoiding surgery. She would prefer to try antibiotics and local wound care. We discussed that there is still a chance of requiring surgical intervention despite antibiotic treatment and the risk of progression of the infection proximally. She understands and would still like to try antibiotics without surgery. Continue broad-spectrum IV antibiotics for now. Wound cultures were ordered. Will continue to monitor. (2) Diabetic ulcer of toe: Qualifiers: Diabetes mellitus type: type 2 Laterality: left Non-pressure ulcer stage: with bone involvement without evidence of necrosis Qualified Code(s): E 11.621 - Type 2 diabetes mellitus with foot ulcer; L97.526 - Non-pressure chronic ulcer of other part of left foot with bone involvement without evidence of necrosis Code(s): E11.621 - Type 2 diabetes mellitus with foot ulcer; L97.509 - Non-pressure chronic ulcer of other part of unspecified foot with unspecified severity Status: Acute Assessment and Plan: * There is a small 1.5 cm ulcer on the plantar aspect of the distal left great toe. There is no purulent drainage or fluctuance. There is a small amount of yellow slough and devascularized tissue in the center of the wound. Will start Santyl dressing changes for local wound care. * Will order postop shoe for ambulation. Discussed with patient that she should maintain heel-touch weight bearing on the left foot with transfers/ambulation. 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 Plan I have discussed the patient's case and plan of care with Dr. Orellana. History of Present Illness Consult details Consult date: 08/22/25 Reason for consult: other (Osteomyelitis) Requesting physician: Ivanna Aburto APRN Narrative: This is a 60-year-old woman with type 2 diabetes mellitus, who presented to the emergency department with complaints of left great toe swelling and redness x 1 week. She has peripheral neuropathy and has no sensation in her feet. She reports putting on shoes getting to neuropathy. She does not recall any trauma or noticing anything with her left great toe up until about a week ago. She noticed that her toe is red. Over the next few days, it became more swollen and she notices small wound on the bottom of her toe. She has been treating this by washing it daily and applying antibiotic ointment. Without any improvement, she came into the ED for evaluation today. She reports having an infection in this toe about 5-6 years ago, which eventually healed. She did lose her toenail, but denies any previous osteomyelitis or surgery in the left foot. Labs showed a normal white blood cell count. X-rays of the left great toe showed evidence of osteomyelitis in the distal portion of the distal first phalanx. She is now seen in the ED. hemoglobin A1c is 6.8. Glucose 127. Lactic acid 0.8. Review of Systems 2 Review of Systems: All systems reviewed & are unremarkable except as noted in HPI and below PMFSH Past Medical History Medical History Rosacea Diabetes mellitus with neuropathy Hyperlipidemia associated with type 2 diabetes mellitus Diabetes mellitus with hyperglycemia Surgical History Surgical History Previous back surgery H/O bilateral breast reduction surgery Social History Social History Smoking status: Never smoker Alcohol intake: current Substance use: never Substance use type: does not use Living arrangements: with family Spiritual care concerns: No Meds Home Medications and Allergies Home Medications ?Medication ?Instructions ?Recorded ?Confirmed ?Type pregabalin 25 mg capsule 25 mg PO DAILY #30 caps 01/3006/13/25 Rx blood-glucose meter (Accu-Chek #1 ea 03/15/25 06/13/25 Rx Guide Glucose Meter) lancets (Accu-Chek Softclix #100 ea 04/19/25 06/13/25 Rx Lancets) atorvastatin 20 mg tablet See Rx Instructions .Route 0 05/17/25 06/13/25 Rx .COMPLEX #90 tabs insulin glargine 100 unit/mL 40 unit (0.4 mL) subcut D AILY #10 06/06/25 06/13/25 Rx subcutaneous solution (Lantus mL U-100 Insulin) blood sugar diagnostic (Accu-Chek #100 ea 07/24/25 Rx Guide test strips) tirzepatide 15 mg/0.5 mL 15 mg (0.5 mL) subcut WEEKLY #2 mL 08/03/25 Rx subcutaneous pen injector Allergies Allergy/AdvReac Type Severity Reaction Status Date / Time No Known Allergies Allergy Verified 08/22/25 09:35 Vital Signs Vital Signs - 24 hr 08/22/25 09:33 Temperature 97.6 F Pulse Rate 87 Respiratory Rate 18 Blood Pressure 112/88 Pulse Oximetry 99 Oxygen Delivery Room Air Exam 2 Const: General: comfortable and no acute distress Nutritional Appearance: a verage body habitus Orientation/consciousness: patient oriented x3 HENMT: Head: normocephalic and atraumatic Ears: hearing grossly normal bilaterally Mouth: Yes moist mucous membranes Eyes: General: appearance normal, both eyes and all related structures P upils: Equal, round and reactive pupils present Neck: Neck: normal visual inspection and full ROM Resp: Effort & Inspection: no respiratory distress Auscultation: clear to auscultation bilaterally Cardio: Rate: regular rate Rhythm: regular rhythm Peripheral pulses: P eripheral pulses 2+ throughout GI: Inspection: non-distended and no visible herniation GI Palp: Yes Soft to palpation, No Tenderness to palpation present (GI), No Guarding due to palpation present (GI) and No Rebound tenderness present Auscultation: normal bowel sounds Skin: General skin exam: normal color Neuro: General: moves all extremities and no focal motor deficits Speech: n ormal speech Motor exam (neuro): 5/5 motor strength present throughout Extrem: Right upper extremity: normal to inspection Left upper extremity: n ormal to inspection Right lower extremity: normal to inspection Left lower extremity: foot Details: normal capillary refill, toes with normal ROM, warmth Location: of the great toe, edema Location: of the great toe (Erythema and edema diffusely on the great toe extending to the base of the great toe), vascular exam Details: dorsalis pedis pulse present, posterior tibial pulse present and normal capillary refill; not cool, motor-sensory exam (No sensation of the great toe) and other (No erythema or swelling extending on to the foot) Other: 1.5 x 1 x 0.4 cm ulcer to the plantar di stal great toe with no purulent drainage, does not obviously probe to bone on exam, center of the wound bed is pale garcia with surrounding callus, which was easily removed with pink tissue beneath the callus Psych: Mental Status: mental status grossly normal Attitude: cooperative Insight: Good insight present (Psych) Judgement: Good judgement present (Psych) Results Labs 08/22/25 10:50 08/22/25 10:50 Labs: Abnormal lab results 08/22/25 Range/Units 10:50 Eos % (Auto) 7.3 H (0-4.4) % Eos # (Auto) 0.6 H (0-0.3) K/mm3 BUN 18 H (7-17) mg/dL Glucose 127 H (65-110) mg/dL Hemoglobin A1c 6.8 H (<5.7) % Total Bilirubin 1.5 H (0.2-1.3) mg/dL Diabetes panel 08/22/25 Range/Units 10:50 Sodium 138 (137-145) mmol/L Potassium 4.4 (3.4-5.0) mmol/L Chloride 102 (98-107) mmol/L Carbon Dioxide 26 (22-30) mmol/L BUN 18 H (7-17) mg/dL Creatinine 0.80 (0.7-1.0) mg/dL Glucose 127 H (65-110) mg/dL Hemoglobin A1c 6.8 H (<5.7) % Calcium 9.1 (8.4-10.2) mg/dL AST 24 (14-36) U/L ALT 17 (6-35) U/L Alkaline Phosphatase 88 (38-126) U/L Total Protein 8.0 (6.3-8.2) g/dL Albumin 4.3 (3.5-5.1) g/dL Calcium panel 08/22/25 Range/Units 10:50 Calcium 9.1 (8.4-10.2) mg/dL Albumin 4.3 (3.5-5.1) g/dL Pituitary panel 08/22/25 Range/Units 10:50 Sodium 138 (137-145) mmol/L Potassium 4.4 (3.4-5.0) mmol/L Chloride 102 (98-107) mmol/L Carbon Dioxide 26 (22-30) mmol/L BUN 18 H (7-17) mg/dL Creatinine 0.80 (0.7-1.0) mg/dL Glucose 127 H (65-110) mg/dL Calcium 9.1 (8.4-10.2) mg/dL Adrenal panel 08/22/25 Range/Units 10:50 Sodium 138 (137-145) mmol/L Potassium 4.4 (3.4-5.0) mmol/L Chloride 102 (98-107) mmol/L Carbon Dioxide 26 (22-30) mmol/L BUN 18 H (7-17) mg/dL Creatinine 0.80 (0.7-1.0) mg/dL Glucose 127 H (65-110) mg/dL Calcium 9.1 (8.4-10.2) mg/dL Total Bilirubin 1.5 H (0.2-1.3) mg/dL AST 24 (14-36) U/L ALT 17 (6-35) U/L Alkaline Phosphatase 88 (38-126) U/L Total Protein 8.0 (6.3-8.2) g/dL Albumin 4.3 (3.5-5.1) g/dL All other labs normal. Imaging Additional studies: ITS Impressions Toe X-Ray 08/22/25 10:42 Impression: Osteomyelitis
--- NOTE | 2025-08-22 14:10 | ADMGEN ---
This patient, Jennifer Strauss, was admitted to [facility] Surg Room 311-01. Patient/family oriented to hospital policies and general routines including ID bracelet, bed and alarms, visiting hours, pain management, procedures, bathroom and other care routines, personal items, smoking policy, room service/diet, and visiting hours. Information on how to activate the Rapid Response Team has been discussed. Patient/Family are encouraged to report perceived risks to care and to ask questions if they do not understand what they are told or what they should do.
[2025-08-22] MEDS: VANCOMYCIN 2,000 MG/NS 500 ML 2,000 MG/500 ML BAG 250 MG IVPB (14:15)
[2025-08-22 14:33] VITALS: BP 137/86; PULSE 78; RESP 18; TEMP 36.2; O2SAT 100
[2025-08-22 16:02] VITALS: BMI 27.1
[2025-08-22 21:33] VITALS: BP 112/59; PULSE 85; RESP 14; TEMP 37.1; O2SAT 97
[2025-08-23] MEDS: metroNIDAZOLE 500 MG/ISO 100ML 500 MG/100 ML BAG 100 MG IVPB ×3 (05:17→21:57)
[2025-08-23 05:42] VITALS: BP 145/85; PULSE 83; RESP 14; TEMP 36.7; O2SAT 98
[2025-08-23 06:07] LABS: Hematocrit 39.3 % (37.0-47.0); Hemoglobin 13.0 g/dL (12.0-15.0); Immature Granulocyte Percent A 0.1 % (0-0.5); Lymphocytes Absolute Auto 2.38 K/mm3 (0.9-3.2); Mean Corpuscular HGB Conc 33.1 g/dl (32-36); Mean Corpuscular Hemoglobin 28.5 pg (26-34); Mean Corpuscular Volume 86.2 fl (80-100); Nucleated Red Blood Cells Absolute Auto 0.000 K/mm3 (0.0-0.012); Nucleated Red Blood Cells Perc 0.0 % (0.0-0.2); Platelet Count Result 243 k/mm3 (150-375); Red Blood Count 4.56 M/mm3 (4.2-5.4); White Blood Count 7.3 K/mm3 (4.5-10.0)
[2025-08-23] MEDS: VANCOMYCIN 1,500 MG/NS 500 ML 1,500 MG/500 ML BAG 250 MG IVPB (06:22)
[2025-08-23] MEDS: ACETAMINOPHEN 325 MG TABLET 650 MG PO (06:46)
[2025-08-23 07:13] LABS: Alanine Aminotransferase 14 U/L (6-35); Albumin Level 3.5 g/dL (3.5-5.1); Alkaline Phosphatase 73 U/L (38-126); Anion Gap 6 mmol/L (4-12); Aspartate Amino Transferase 23 U/L (14-36); Bilirubin,Total 1.5 mg/dL (0.2-1.3); Blood Urea Nitrogen 14 mg/dL (7-17); Calcium 8.7 mg/dL (8.4-10.2); Carbon Dioxide 25 mmol/L (22-30); Chloride 103 mmol/L (98-107); Estimated CRCL calculation 75 ml/min; Estimated Glomerular Filt Rate > 60; Glucose 107 mg/dL (65-110); Potassium 3.5 mmol/L (3.4-5.0); Sodium 134 mmol/L (137-145); Total Protein 6.6 g/dL (6.3-8.2)
--- NOTE | 2025-08-23 07:47 | P.PNIM_ITS ---
Progress Note: A&P Assessment and Plan (1) Osteomyelitis of great toe of left foot: Code(s): M86.9 - Osteomyelitis, unspecified Status: Acute Assessment and Plan: - did not meet SIRS criteria. Lactic 0.8 upon admission. No leukocytosis. - left toe XR showed osteomyelitis on 08/22 - left toe infection complicated by diabetes, A1c 6.8% and per patient blood sugars have been controlled at home - started on cefepime, vancomycin, and Flagyl on 08/22 - general surgery consulted, recommended: Discussed 6 weeks of antibiotics with wound care versus surgical management with a partial left great toe amputation, patient abdomen she would like to avoid surgery and prefers antibiotics Start Santyl dressings for local wound care - ID consulted - awaiting wound culture. Continue broad spectrum antibiotics and hopeful to tailor therapy once culture results. 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 Diabetes mellitus type: type 2 Qualified Code(s): E11.40 - Type 2 diabetes mellitus with diabetic neuropathy, unspecified; Z79.4 - buttermaker continuous churn (current) use of insulin Code(s): E11.40 - Type 2 diabetes mellitus with diabetic neuropathy, unspecified Status: Chronic Assessment and Plan: - A1C 6.8% on 08/22/25 - currently complicated, see above - hypoglycemia protocol - POC blood glucose ACHS - home medication: Continue Lantus 20u subQ daily (reduced from home dose), hold Tirzepatide - moderate dose SSI TIDWM Plan Diet: Diabetic DVT Prophylaxis: SCDs Code Status: Full code Subjective Date/time seen: 08/23/25 07:47 Interval history: 60 y/o F with PMH of diabetes, peripheral neuropathy, and hyperlipidemia presents here with a wound to her left big toe. Patient seen and examined at bedside. Denies pain. Per nursing, toe wound is looking improved. Review of Systems Review of Systems: All systems reviewed & are unremarkable except as noted in HPI and below Exam Narrative: General: NAD Eyes: EOMI ENT: neck supple Cardiovascular: Regular rate and rhythm Respiratory: Clear to auscultation, respirations even and unlabored on RA Gastrointestinal: Soft, non tender Genitourinary: no suprapubic tenderness Musculoskeletal: No edema. Left toe dressing CDI. Skin: warm, dry Neuro: Alert. Psych: Mood appropriate Objective Data Vital Signs Vital Signs: Vital Signs - 24 hr 08/22/25 09:33 08/22/25 14:33 08/22/25 21:33 Temperature 97.6 F 97.2 F L 98.8 F Pulse Rate 87 78 85 Respiratory Rate 18 18 14 Blood Pressure 112/88 137/86 112/59 L Pulse Oximetry 99 100 97 Oxygen Delivery Room Air 08/23/25 05:42 Temperature 98.0 F Pulse Rate 83 Respiratory Rate 14 Blood Pressure 145/85 H Pulse Oximetry 98 Oxygen Delivery Intake/Output Intake/Output: Intake & Output 08/20/25 08/21/25 08/22/25 08/23/25 23:59 23:59 23:59 23:59 Intake Total 690 400 Balance 690 400 Meds/Results Medications: Active Medications Generic Name Dose Route Start Last Admin Trade Name Freq PRN Reason Stop Dose Admin Acetaminophen 650 mg 08/22/25 12:53 08/23/25 06:46 Acetaminophen 325 Mg Tablet PO 650 mg Q4H PRN Administration Mild Pain (1-3) or Fever Hydrocodone Bitart/Acetaminophen 1 tab 08/22/25 13:16 Hydrocodone/Acetaminophen (*Crx) 5-325 Mg Tablet PO Q4H PRN Moderate Pain (4-6) Bisacodyl 5 mg 08/22/25 13:16 Bisacodyl 5 Mg Tablet Ec PO DAILY PRN Constipation Collagenase 1 applic 08/23/25 09:00 Collagenase Oint 30 Gm Tube TOPICAL QAM KAYA Dextrose 12.5 gm 08/22/25 12:53 Dextrose 50% 25 Gm/50 Ml Syringe IV PUSH PRN PRN Hypoglycemia Protocol Glucagon 1 mg 08/22/25 12:53 Glucagon For Inj 1 Mg Vial IM PRN PRN Hypoglycemia Protocol Glucose 15 gm 08/22/25 12:53 Glucose Oral Gel 15 Gm Of Glucse In 37.5 Gm Tube PO PRN PRN Hypoglycemia Protocol Cefepime HCl 2 gm/ Sodium 50 mls @ 100 mls/hr 08/22/25 23:00 08/22/25 23:04 Chloride IVPB 100 mls/hr Q12H KAYA Administration Metronidazole 500 mg in 100 mls @ 100 mls/hr 08/22/25 22:00 08/23/25 06:17 Flagyl 500 Mg/Iso Soln 100 Ml IVPB Infused Q8HR KAYA Infusion Dextrose 1,000 mls @ 100 mls/hr 08/22/25 12:53 Dextrose 5% 1,000 Ml IVPB PRN PRN Hypoglycemia Protocol Vancomycin HCl 1,500 mg in 500 mls @ 250 mls/hr 08/23/25 07:00 08/23/25 06:22 Vancomycin 1,500 Mg/Ns 500 Ml IVPB 250 mls/hr Q18H KAYA Administration Insulin Aspart 3 - 6 units 08/22/25 17:00 08/22/25 18:06 Insulin Aspart (*Bkc) 100 Units/Ml SUB-Q Not Given TIDWM [facility] Protocol Insulin Glargine 40 units 08/23/25 09:00 Insulin Glargine (*Bkc) 100 Units/Ml SUB-Q DAILY [facility] Morphine Sulfate 2 mg 08/22/25 14:32 Morphine Sulfate (*Crx) 4 Mg/Ml Inj IV PUSH Q4H PRN Pain Rated 7-10 Ondansetron HCl 4 mg 08/22/25 12:53 Ondansetron Inj 4 Mg/2 Ml Vial IV PUSH Q4H PRN Nausea Radiology Results: ITS Impressions Toe X-Ray 08/22/25 10:42 Impression: Osteomyelitis Labs Labs: Laboratory Results - last 24 hr 08/22/25 08/22/25 08/22/25 10:50 16:26 20:06 WBC 8.5 RBC 5.13 Hgb 14.5 Hct 44.1 MCV 86.0 MCH 28.3 MCHC 32.9 RDW 13.1 Plt Count 293 MPV 9.5 Immature Gran % (Auto) 0.4 Neut % (Auto) 56.6 Lymph % (Auto) 27.7 [place] % (Auto) 7.1 Eos % (Auto) 7.3 H Baso % (Auto) 0.9 Lymph # (Auto) 2.34 [place] # (Auto) 0.6 Eos # (Auto) 0.6 H Baso # (Auto) 0.1 Abs Immat Gran (auto) 0.03 Absolute Neuts (auto) 4.8 Absolute Nucleated RBC 0.000 Nucleated RBC % 0.0 ESR 15 PT 14.1 INR 1.1 APTT 25.3 Sodium 138 Potassium 4.4 Chloride 102 Carbon Dioxide 26 Anion Gap 10 BUN 18 H Creatinine 0.80 Estim Creat Clear Calc 67 Estimated GFR > 60 Glucose 127 H POC Capillary Glucose 101 121 H Hemoglobin A1c 6.8 H Lactic Acid 0.8 Calcium 9.1 Total Bilirubin 1.5 H AST 24 ALT 17 Alkaline Phosphatase 88 C-Reactive Protein 0.5 Total Protein 8.0 Albumin 4.3 08/23/25 08/23/25 05:30 06:40 WBC 7.3 RBC 4.56 Hgb 13.0 Hct 39.3 MCV 86.2 MCH 28.5 MCHC 33.1 RDW 13.0 Plt Count 243 MPV 9.6 Immature Gran % (Auto) 0.1 Neut % (Auto) 48.9 Lymph % (Auto) 32.5 [place] % (Auto) 8.3 Eos % (Auto) 9.4 H Baso % (Auto) 0.8 Lymph # (Auto) 2.38 [place] # (Auto) 0.6 Eos # (Auto) 0.7 H Baso # (Auto) 0.1 Abs Immat Gran (auto) 0.01 Absolute Neuts (auto) 3.6 Absolute Nucleated RBC 0.000 Nucleated RBC % 0.0 ESR PT INR APTT Sodium 134 L Potassium 3.5 Chloride 103 Carbon Dioxide 25 Anion Gap 6 BUN 14 Creatinine 0.71 Estim Creat Clear Calc 75 Estimated GFR > 60 Glucose 107 POC Capillary Glucose 112 H Hemoglobin A1c Lactic Acid Calcium 8.7 Total Bilirubin 1.5 H AST 23 ALT 14 Alkaline Phosphatase 73 C-Reactive Protein Total Protein 6.6 Albumin 3.5 Quality VTE Prophylaxis VTE prophylaxis: mechanical ordered
[2025-08-23] MEDS: COLLAGENASE OINT 30 GM TUBE 1 APPLIC TOPICAL (09:22)
--- NOTE | 2025-08-23 11:04 | P.PNGS_ITS ---
Progress Note: A&P Assessment and Plan (1) Osteomyelitis of great toe of left foot: Code(s): M86.9 - Osteomyelitis, unspecified Status: Acute Assessment and Plan: * Left great toe with Xray evidence of osteomyelitis. Patient prefers nonoperative treatment with 6 week antibiotic course. * Cellulitis seems to be improved today. Distal half of toe still red and swollen. Continue daily wound care and dressing changes with Santyl. * Wound cultures obtained today and still pending. Blood cultures pending. Continue IV antibiotics - cefepime, flagyl, vanc * Awaiting infectious disease consult and recommendations. (2) Diabetic ulcer of toe: Qualifiers: Diabetes mellitus type: type 2 Laterality: left Non-pressure ulcer stage: with bone involvement without evidence of necrosis Qualified Code(s): E11.621 - Type 2 diabetes mellitus with foot ulcer; L97.526 - Non-pressure chronic ulcer of other part of left foot with bone involvement without evidence of necrosis Code(s): E11.621 - Type 2 diabetes mellitus with foot ulcer; L97.509 - Non-pressure chronic ulcer of other part of unspecified foot with unspecified severity Status: Acute Assessment and Plan: * Continue daily wound care and dressing changes with Santyl and gauze. * Will order postop shoe for ambulation. 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 Plan I have discussed the patient's case and plan of care with Dr. Orellana. Subjective Subjective Date/Time Seen: 08/23/25 11:04 Patient reports: no new complaints and feels better Interval history: Patient is doing well. No new complaints. WBC 7.3. Exam Extrem: Right upper extremity: normal to inspection Left upper extremity: normal to inspection Right lower extremity: normal to inspection Left lower extremity: foot Details: normal capillary refill, toes with normal ROM, warmth Location: of the great toe, edema Location: of the great toe (Erythema and edema diffusely on the great toe extending to the base of the great toe), vascular exam Details: dorsalis pedis pulse present, posterior tibial pulse present and normal capillary refill; not cool, motor-sensory exam (No sensation of the great toe) and other (No erythema or swelling extending on to the foot) Other: Small ulcer to the plantar distal left great toe with no purulent drainage. No obvious bone exposure. [place] healthy tissue. Redness and swelling to distal half of great toe. Distal pulse palpable. Objective Data Vital Signs Vital Signs: Vital Signs - 24 hr 08/22/25 14:33 08/22/25 21:33 08/23/25 05:42 Temperature 97.2 F L 98.8 F 98.0 F Pulse Rate 78 85 83 Respiratory Rate 18 14 14 Blood Pressure 137/86 112/59 L 145/85 H Pulse Oximetry 100 97 98 Intake/Output Intake/Output: Intake & Output 08/20/25 08/21/25 08/22/25 08/23/25 23:59 23:59 23:59 23:59 Intake Total 690 900 Balance 690 900 Meds/Results Medications: Active Medications Generic Name Dose Route Start Last Admin Trade Name Freq PRN Reason Stop Dose Admin Acetaminophen 650 mg 08/22/25 12:53 08/23/25 06:46 Acetaminophen 325 Mg Tablet PO 650 mg Q4H PRN Administration Mild Pain (1-3) or Fever Hydrocodone Bitart/Acetaminophen 1 tab 08/22/25 13:16 Hydrocodone/Acetaminophen (*Crx) 5-325 Mg Tablet PO Q4H PRN Moderate Pain (4-6) Bisacodyl 5 mg 08/22/25 13:16 Bisacodyl 5 Mg Tablet Ec PO DAILY PRN Constipation Collagenase 1 applic 08/23/25 09:00 08/23/25 09:22 Collagenase Oint 30 Gm Tube TOPICAL 1 applic QAM KAYA Administration Dextrose 12.5 gm 08/22/25 12:53 Dextrose 50% 25 Gm/50 Ml Syringe IV PUSH PRN PRN Hypoglycemia Protocol Glucagon 1 mg 08/22/25 12:53 Glucagon For Inj 1 Mg Vial IM PRN PRN Hypoglycemia Protocol Glucose 15 gm 08/22/25 12:53 Glucose Oral Gel 15 Gm Of Glucse In 37.5 Gm Tube PO PRN PRN Hypoglycemia Protocol Cefepime HCl 2 gm/ Sodium 50 mls @ 100 mls/hr 08/22/25 23:00 08/22/25 23:04 Chloride IVPB 100 mls/hr Q12H KAYA Administration Metronidazole 500 mg in 100 mls @ 100 mls/hr 08/22/25 22:00 08/23/25 06:17 Flagyl 500 Mg/Iso Soln 100 Ml IVPB Infused Q8HR KAYA Infusion Dextrose 1,000 mls @ 100 mls/hr 08/22/25 12:53 Dextrose 5% 1,000 Ml IVPB PRN PRN Hypoglycemia Protocol Vancomycin HCl 1,500 mg in 500 mls @ 250 mls/hr 08/23/25 07:00 08/23/25 08:22 Vancomycin 1,500 Mg/Ns 500 Ml IVPB Infused Q18H KAYA Infusion Insulin Aspart 3 - 6 units 08/22/25 17:00 08/23/25 09:21 Insulin Aspart (*Bkc) 100 Units/Ml SUB-Q Not Given [facility] Protocol Insulin Glargine 20 units 08/23/25 09:00 Insulin Glargine (*Bkc) 100 Units/Ml SUB-Q On Hold: 08/23/25 09:00 DAILY KAYA Morphine Sulfate 2 mg 08/22/25 14:32 Morphine Sulfate (*Crx) 4 Mg/Ml Inj IV PUSH Q4H PRN Pain Rated 7-10 Ondansetron HCl 4 mg 08/22/25 12:53 Ondansetron Inj 4 Mg/2 Ml Vial IV PUSH Q4H PRN Nausea Radiology Results: ITS Impressions Toe X-Ray 08/22/25 10:42 Impression: Osteomyelitis Labs Labs: Laboratory Results - last 24 hr 08/22/25 08/22/25 08/22/25 10:50 16:26 20:06 WBC RBC Hgb Hct MCV MCH MCHC RDW Plt Count MPV Immature Gran % (Auto) Neut % (Auto) Lymph % (Auto) [place] % (Auto) Eos % (Auto) Baso % (Auto) Lymph # (Auto) [place] # (Auto) Eos # (Auto) Baso # (Auto) Abs Immat Gran (auto) Absolute Neuts (auto) Absolute Nucleated RBC Nucleated RBC % ESR 15 PT 14.1 INR 1.1 APTT 25.3 Sodium 138 Potassium 4.4 Chloride 102 Carbon Dioxide 26 Anion Gap 10 BUN 18 H Creatinine 0.80 Estim Creat Clear Calc 67 Estimated GFR > 60 Glucose 127 H POC Capillary Glucose 101 121 H Hemoglobin A1c 6.8 H Lactic Acid 0.8 Calcium 9.1 Total Bilirubin 1.5 H AST 24 ALT 17 Alkaline Phosphatase 88 C-Reactive Protein 0.5 Total Protein 8.0 Albumin 4.3 08/23/25 08/23/25 08/23/25 05:30 06:40 07:37 WBC 7.3 RBC 4.56 Hgb 13.0 Hct 39.3 MCV 86.2 MCH 28.5 MCHC 33.1 RDW 13.0 Plt Count 243 MPV 9.6 Immature Gran % (Auto) 0.1 Neut % (Auto) 48.9 Lymph % (Auto) 32.5 [place] % (Auto) 8.3 Eos % (Auto) 9.4 H Baso % (Auto) 0.8 Lymph # (Auto) 2.38 [place] # (Auto) 0.6 Eos # (Auto) 0.7 H Baso # (Auto) 0.1 Abs Immat Gran (auto) 0.01 Absolute Neuts (auto) 3.6 Absolute Nucleated RBC 0.000 Nucleated RBC % 0.0 ESR PT INR APTT Sodium 134 L Potassium 3.5 Chloride 103 Carbon Dioxide 25 Anion Gap 6 BUN 14 Creatinine 0.71 Estim Creat Clear Calc 75 Estimated GFR > 60 Glucose 107 POC Capillary Glucose 112 H 109 H Hemoglobin A1c Lactic Acid Calcium 8.7 Total Bilirubin 1.5 H AST 23 ALT 14 Alkaline Phosphatase 73 C-Reactive Protein Total Protein 6.6 Albumin 3.5
[2025-08-23] MEDS: CEFEPIME 2 GM in SODIUM CHLORIDE 0.9% IV 50 ML 100 ML IVPB ×2 (11:42→21:58)
--- NOTE | 2025-08-23 11:50 | WPDIDCN ---
Assessment and Plan Assessment and plan (1) Osteomyelitis of great toe of left foot: Code(s): M86.9 - Osteomyelitis, unspecified Status: Acute Assessment and Plan: -Await wound culture results -Continue Vancomycin IV for empiric coverage of gram positive organisms including MRSA pending culture results -Continue Cefepime/Metronidazole for empiric coverage of gram-negatives/anaerobes pending cultures -Can hopefully consolidate/de-escalate antimicrobials once culture results known -Continue local wound care and DM management -Patient will require prolonged course of antimicrobials if no definitive bony resection performed this admission -Counseled patient that DFU and infection can progress despite prolonged antimicrobial therapy and that she may require amputation in the future if there is not healing of ulcer and resolution of infection. She voiced understanding. 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 All questions answered Patient was seen via video telehealth consultation with the assistance of staff. Chart, data, and patient independently reviewed. Patient was located at [facility] while I was located in my [place] office. Received verbal consent from patient. HPI Data of Consult Date/Time: 08/23/25 11:50 Requesting Physician: Mellisa Cardenas MD Primary Care Provider: Cy Erickson DO Consult Narrative Reason for consult: Left hallux diaetic foot ulcer (DFU) with acute osteomyelitis Narrative: Jennifer Strauss is a 60 year old female with history of DM type 2, diabetic neuropathy who noted a wound at the distal tip of left hallux about one week ago. She has severe peripheral neuropathy due to DM and cannot feel her toes. She thinks she may have developed friction wound involving left hallux after wearing shoes without socks. She then noted redness, swelling, and purulent drainage. She was admitted to [facility] for further management. Plain films of left hallux notable for destructive bony changes of distal phalanx compatible with osteomyelitis. Wound culture was obtained and is currently pending. Patient has been evaluated by General Surgery service for possible surgical intervention including toe amputation. Reportedly, patient does not want amputation presently. Patient denies prior history of diabetic foot ulcers or infection. Review of Systems Review of Systems: All systems reviewed & are unremarkable except as noted in HPI and below PMFSH Past Medical History Medical History Rosacea Diabetes mellitus with neuropathy Hyperlipidemia associated with type 2 diabetes mellitus Diabetes mellitus with hyperglycemia Surgical History Surgical History Previous back surgery H/O bilateral breast reduction surgery Social History Social History Smoking status: Never smoker Alcohol intake: never Substance use: never Substance use type: does not use Lack of Transportation: No Lack of Food: Never True Current Housing: I Have Housing Concerned About Future Housing: No Difficulty Paying Gas/Electric Bills: No Difficulty Paying for Meds: No Currently Unemployed: No Education: High School Diploma/GED Difficulty w/ Childcare or Family Care: No Living arrangements: with family Spiritual care concerns: No Meds Home Medications and Allergies Home Medications ?Medication ?Instructions ?Recorded ?Confirmed ?Type blood-glucose meter (Accu-Chek #1 ea 03/15/25 08/22/25 Rx Guide Glucose Meter) lancets (Accu-Chek Softclix #100 ea 04/19/25 08/22/25 Rx Lancets) insulin glargine 100 unit/mL 40 unit (0.4 mL) subcut DAILY #10 06/06/25 08/22/25 Rx subcutaneous solution (Lantus mL U-100 Insulin) blood sugar diagnostic (Accu-Chek #100 ea 07/24/25 08/22/25 Rx Guide test strips) tirzepatide 15 mg/0.5 mL 15 mg (0.5 mL) subcut WEEKLY #2 mL 08/03/25 08/22/25 Rx subcutaneous pen injector Allergies Allergy/AdvReac Type Severity Reaction Status Date / Time No Known Allergies Allergy Verified 08/22/25 09:35 Vital Signs Vital Signs - 24 hr 08/22/25 14:33 08/22/25 21:33 08/23/25 05:42 Temperature 97.2 F L 98.8 F 98.0 F Pulse Rate 78 85 83 Respiratory Rate 18 14 14 Blood Pressure 137/86 112/59 L 145/85 H Pulse Oximetry 100 97 98 Exam Narrative: Gen: NAD, alert and oriented Resp: no tachypnea, normal chest expansion Musc: Left foot- hallux with ulcer Derm: no rash Ext: LLE with minimal edema Results Labs 08/23/25 05:30 08/23/25 05:30 Labs: Short CBC 08/23/25 Range/Units 05:30 WBC 7.3 (4.5-10.0) K/mm3 Hgb 13.0 (12.0-15.0) g/dL Hct 39.3 (37.0-47.0) % Plt Count 243 (150-375) k/mm3 BMP 08/23/25 05:30 Sodium 134 L Potassium 3.5 Chloride 103 Carbon Dioxide 25 BUN 14 Creatinine 0.71 Glucose 107 Calcium 8.7 Liver Function 08/23/25 Range/Units 05:30 Total Bilirubin 1.5 H (0.2-1.3) mg/dL AST 23 (14-36) U/L ALT 14 (6-35) U/L Alkaline Phosphatase 73 (38-126) U/L Albumin 3.5 (3.5-5.1) g/dL
[2025-08-23 14:00] VITALS: BP 147/92; PULSE 89; RESP 16; TEMP 36.3; O2SAT 99
[2025-08-23 21:18] VITALS: BP 139/86; PULSE 89; RESP 14; TEMP 36.3; O2SAT 98
[2025-08-24] MEDS: VANCOMYCIN 1,500 MG/NS 500 ML 1,500 MG/500 ML BAG 250 MG IVPB ×3 (01:03→13:15)
[2025-08-24 05:45] VITALS: BP 153/83; PULSE 86; RESP 14; TEMP 36.2; O2SAT 97
[2025-08-24] MEDS: metroNIDAZOLE 500 MG/ISO 100ML 500 MG/100 ML BAG 100 MG IVPB (06:39)
[2025-08-24 07:21] LABS: Estimated CRCL calculation 80 ml/min; Estimated Glomerular Filt Rate > 60
--- NOTE | 2025-08-24 08:05 | P.PNIM_ITS ---
Progress Note: A&P Assessment and Plan (1) Osteomyelitis of great toe of left foot: Code(s): M86.9 - Osteomyelitis, unspecified Status: Acute Assessment and Plan: * did not meet SIRS criteria. Lactic 0.8 upon admission. No leukocytosis. * left toe XR showed osteomyelitis on 08/22 * left toe infection complicated by diabetes, A1c 6.8% and per patient blood sugars have been controlled at home * started on cefepime, vancomycin, and Flagyl on 08/22 * general surgery consulted, recommended: * Discussed 6 weeks of antibiotics with wound care versus surgical management with a partial left great toe amputation, patient abdomen she would like to avoid surgery and prefers antibiotics * Start Santyl dressings for local wound care * ID consulted * awaiting wound culture * Continue broad spectrum antibiotics and hopeful to tailor therapy once culture results. * Analgesics p.r.n.: Tylenol, [place] * Pending wound cultures * Remains afebrile, without leukocytosis (2) Diabetes mellitus with neuropathy: Qualifiers: Diabetes mellitus watermaster insulin use: with alf use Diabetes mellitus type: type 2 Qualified Code(s): E11.40 - Type 2 diabetes mellitus with diabetic neuropathy, unspecified; Z79.4 - intermediate (current) use of insulin Code(s): E11.40 - Type 2 diabetes mellitus with diabetic neuropathy, unspecified Status: Chronic Assessment and Plan: * A1C 6.8% on 08/22/25 * currently complicated, see above * hypoglycemia protocol * POC blood glucose ACHS * home medication: Continue Lantus 20u subQ daily (reduced from home dose), hold Tirzepatide * moderate dose SSI TIDWM * Glucose remains well controlled Plan Diet: Diabetic DVT Prophylaxis: SCDs Code Status: Full code Subjective Date/time seen: 08/24/25 08:05 Interval history: 60 y/o F with PMH of diabetes, peripheral neuropathy, and hyperlipidemia presents here with a wound to her left big toe. 08/24/2025 Patient sitting comfortably in bed at time of examination. Denies any chest pain, shortness of breath, N/V/abdominal pain. Patient states that the wound continues to heal, looks much better/less painful than it was yesterday. Pending wound culture, blood cultures NGTD. Continue antibiotics until cultures have resulted. Id/surgery following. Review of Systems Review of Systems: All systems reviewed & are unremarkable except as noted in HPI and below Exam Narrative: General: NAD Eyes: EOMI ENT: neck supple Cardiovascular: Regular rate and rhythm Respiratory: Clear to auscultation, respirations even and unlabored on RA Gastrointestinal: Soft, non tender Genitourinary: no suprapubic tenderness Musculoskeletal: No edema. Left toe dressing CDI. Skin: warm, dry Neuro: Alert. Psych: Mood appropriate Const: General: comfortable and no acute distress Other: , female, nontoxic appearance HENMT: Face/Nose/Sinus: Normal nares present Mouth: Yes moist mucous membranes Eyes: General: appearance normal, both eyes and all related structures Sclera: sclerae normal Pupils: Equal, round and reactive pupils present EOM: EOMs intact bilaterally Resp: Effort & Inspection: normal respiratory effort Auscultation: clear to auscultation bilaterally Cardio: Rate: regular rate Rhythm: regular rhythm Other: S1-S2 present without murmur, rub, ectopy GI: Other: Abdomen soft, nondistended, nontender. Normoactive bowel sounds in all sergio drants. Skin: General skin exam: normal color and no rashes or lesions noted Other: approx 1x1 cm, yellow wound bed with purulent drainage and mild surrounding erythema. +odor. Neuro: Cranial nerves: Yes Equal, round and reactive pupils present Speech: normal speech Motor exam (neuro): 5/5 motor strength present throughout Sensory Exam: normal sensation Other: A&O x4 Extrem: General: normal exam except as noted Psych: Mental Status: mental status grossly normal Affect: normal affect Other: Good insight and judgment, very pleasant Objective Data Vital Signs Vital Signs: Vital Signs - 24 hr 08/23/25 14:00 08/23/25 21:18 08/23/25 22:00 Temperature 97.4 F L 97.4 F L Pulse Rate 89 89 Respiratory Rate 16 14 Blood Pressure 147/92 H 139/86 Pulse Oximetry 99 98 Oxygen Delivery Room Air 08/24/25 05:45 Temperature 97.2 F L Pulse Rate 86 Respiratory Rate 14 Blood Pressure 153/83 H Pulse Oximetry 97 Oxygen Delivery Intake/Output Intake/Output: Intake & Output 08/21/25 08/22/25 08/23/25 08/24/25 23:59 23:59 23:59 23:59 Intake Total 740 2820 1000 Balance 740 2820 1000 Meds/Results Medications: Active Medications Generic Name Dose Route Start Last Admin Trade Name Freq PRN Reason Stop Dose Admin Acetaminophen 650 mg 08/22/25 12:53 08/23/25 06:46 Acetaminophen 325 Mg Tablet PO 650 mg Q4H PRN Administration Mild Pain (1-3) or Fever Hydrocodone Bitart/Acetaminophen 1 tab 08/22/25 13:16 Hydrocodone/Acetaminophen (*Crx) 5-325 Mg Tablet PO Q4H PRN Moderate Pain (4-6) Bisacodyl 5 mg 08/22/25 13:16 Bisacodyl 5 Mg Tablet Ec PO DAILY PRN Constipation Collagenase 1 applic 08/23/25 09:00 08/23/25 09:22 Collagenase Oint 30 Gm Tube TOPICAL 1 applic QAM KAYA Administration Dextrose 12.5 gm 08/22/25 12:53 Dextrose 50% 25 Gm/50 Ml Syringe IV PUSH PRN PRN Hypoglycemia Protocol Glucagon 1 mg 08/22/25 12:53 Glucagon For Inj 1 Mg Vial IM PRN PRN Hypoglycemia Protocol Glucose 15 gm 08/22/25 12:53 Glucose Oral Gel 15 Gm Of Glucse In 37.5 Gm Tube PO PRN PRN Hypoglycemia Protocol Cefepime HCl 2 gm/ Sodium 50 mls @ 100 mls/hr 08/22/25 23:00 08/23/25 23:54 Chloride IVPB Infused Q12H [facility]A Infusion Metronidazole 500 mg in 100 mls @ 100 mls/hr 08/22/25 22:00 08/24/25 06:39 Flagyl 500 Mg/Iso Soln 100 Ml IVPB 100 mls/hr Q8HR KAYA Administration Dextrose 1,000 mls @ 100 mls/hr 08/22/25 12:53 Dextrose 5% 1,000 Ml IVPB PRN PRN Hypoglycemia Protocol Vancomycin HCl 1,500 mg in 500 mls @ 250 mls/hr 08/24/25 01:00 08/24/25 06:40 Vancomycin 1,500 Mg/Ns 500 Ml IVPB Infused Q12H [facility] Infusion Insulin Aspart 3 - 6 units 08/22/25 17:00 08/23/25 19:15 Insulin Aspart (*Bkc) 100 Units/Ml SUB-Q Not Given TIDWM [facility] Protocol Insulin Glargine 20 units 08/23/25 09:00 Insulin Glargine (*Bkc) 100 Units/Ml SUB-Q On Hold: 08/23/25 09:00 DAILY [facility] Ondansetron HCl 4 mg 08/22/25 12:53 Ondansetron Inj 4 Mg/2 Ml Vial IV PUSH Q4H PRN Nausea Radiology Results: ITS Impressions Toe X-Ray 08/22/25 10:42 Impression: Osteomyelitis Labs Labs: Laboratory Results - last 24 hr 08/23/25 08/23/25 08/23/25 11:21 16:27 19:47 Creatinine Estim Creat Clear Calc Estimated GFR POC Capillary Glucose 118 H 137 H 154 H Vancomycin Trough 08/24/25 08/24/25 08/24/25 00:12 06:04 07:52 Creatinine 0.66 L Estim Creat Clear Calc 80 Estimated GFR > 60 POC Capillary Glucose 139 H Vancomycin Trough 10.7 Quality VTE Prophylaxis VTE prophylaxis: mechanical ordered
[2025-08-24 08:18] LABS: Hematocrit 39.0 % (37.0-47.0); Hemoglobin 13.2 g/dL (12.0-15.0); Immature Granulocyte Percent A 0.1 % (0-0.5); Lymphocytes Absolute Auto 2.13 K/mm3 (0.9-3.2); Mean Corpuscular HGB Conc 33.8 g/dl (32-36); Mean Corpuscular Hemoglobin 28.7 pg (26-34); Mean Corpuscular Volume 84.8 fl (80-100); Nucleated Red Blood Cells Absolute Auto 0.000 K/mm3 (0.0-0.012); Nucleated Red Blood Cells Perc 0.0 % (0.0-0.2); Platelet Count Result 267 k/mm3 (150-375); Red Blood Count 4.60 M/mm3 (4.2-5.4); White Blood Count 7.4 K/mm3 (4.5-10.0)
[2025-08-24 08:24] LABS: Alanine Aminotransferase 15 U/L (6-35); Albumin Level 3.6 g/dL (3.5-5.1); Alkaline Phosphatase 75 U/L (38-126); Anion Gap 8 mmol/L (4-12); Aspartate Amino Transferase 24 U/L (14-36); Bilirubin,Total 1.3 mg/dL (0.2-1.3); Blood Urea Nitrogen 9 mg/dL (7-17); Calcium 8.6 mg/dL (8.4-10.2); Carbon Dioxide 23 mmol/L (22-30); Chloride 104 mmol/L (98-107); Glucose 121 mg/dL (65-110); Potassium 3.5 mmol/L (3.4-5.0); Sodium 135 mmol/L (137-145); Total Protein 6.8 g/dL (6.3-8.2)
[2025-08-24] MEDS: COLLAGENASE OINT 30 GM TUBE 1 APPLIC TOPICAL (09:13)
--- NOTE | 2025-08-24 10:05 | WPDINFPN2 ---
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 -Continue local wound care and DM management -Patient will require prolonged course of antimicrobials if no definitive bony resection performed this admission -Previously counseled patient that DFU and infection can progress despite prolonged antimicrobial therapy and that she may require amputation in the future if there is not healing of ulcer and resolution of infection. She voiced understanding. Discussed with patient. All questions answered. Patient was seen via video telehealth consultation with the assistance of staff. Chart, data, and patient independently reviewed. Patient was located at [facility] while I was located in my [place] office. Received verbal consent from patient. Subjective Date/time seen: 08/24/25 10:05 Interval history: Patient afebrile. She is feeling better today. Left hallux redness and swelling decreased somewhat. Review of Systems Review of Systems: All systems reviewed & are unremarkable except as noted in HPI and below Exam Narrative: Gen: NAD, alert and oriented Resp: no tachypnea, normal chest expansion Musc: Left foot- hallux with ulcer with slight purulent drainage, decreased redness around hallux ulcer and 2+ edema of toe Derm: no rash Ext: LLE with minimal edema Objective Data Vital Signs Vital Signs: Vital Signs - 24 hr 08/23/25 14:00 08/23/25 21:18 08/23/25 22:00 Temperature 97.4 F L 97.4 F L Pulse Rate 89 89 Respiratory Rate 16 14 Blood Pressure 147/92 H 139/86 Pulse Oximetry 99 98 Oxygen Delivery Room Air 08/24/25 05:45 Temperature 97.2 F L Pulse Rate 86 Respiratory Rate 14 Blood Pressure 153/83 H Pulse Oximetry 97 Oxygen Delivery Intake/Output Intake/Output: Intake & Output 08/21/25 08/22/25 08/23/25 08/24/25 23:59 23:59 23:59 23:59 Intake Total 740 2820 1360 Balance 740 2820 1360 Meds/Results Medications: Active Medications Generic Name Dose Route Start Last Admin Trade Name Freq PRN Reason Stop Dose Admin Acetaminophen 650 mg 08/22/25 12:53 08/23/25 06:46 Acetaminophen 325 Mg Tablet PO 650 mg Q4H PRN Administration Mild Pain (1-3) or Fever Hydrocodone Bitart/Acetaminophen 1 tab 08/22/25 13:16 Hydrocodone/Acetaminophen (*Crx) 5-325 Mg Tablet PO Q4H PRN Moderate Pain (4-6) Bisacodyl 5 mg 08/22/25 13:16 Bisacodyl 5 Mg Tablet Ec PO DAILY PRN Constipation Collagenase 1 applic 08/23/25 09:00 08/24/25 09:13 Collagenase Oint 30 Gm Tube TOPICAL 1 applic QAM KAYA Administration Dextrose 12.5 gm 08/22/25 12:53 Dextrose 50% 25 Gm/50 Ml Syringe IV PUSH PRN PRN Hypoglycemia Protocol Glucagon 1 mg 08/22/25 12:53 Glucagon For Inj 1 Mg Vial IM PRN PRN Hypoglycemia Protocol Glucose 15 gm 08/22/25 12:53 Glucose Oral Gel 15 Gm Of Glucse In 37.5 Gm Tube PO PRN PRN Hypoglycemia Protocol Cefepime HCl 2 gm/ Sodium 50 mls @ 100 mls/hr 08/22/25 23:00 08/23/25 23:54 Chloride IVPB Infused Q12H KAYA Infusion Metronidazole 500 mg in 100 mls @ 100 mls/hr 08/22/25 22:00 08/24/25 06:39 Flagyl 500 Mg/Iso Soln 100 Ml IVPB 100 mls/hr Q8HR KAYA Administration Dextrose 1,000 mls @ 100 mls/hr 08/22/25 12:53 Dextrose 5% 1,000 Ml IVPB PRN PRN Hypoglycemia Protocol Vancomycin HCl 1,500 mg in 500 mls @ 250 mls/hr 08/24/25 01:00 08/24/25 06:40 Vancomycin 1,500 Mg/Ns 500 Ml IVPB Infused Q12H [facility] Infusion Insulin Aspart 3 - 6 units 08/22/25 17:00 08/24/25 09:09 Insulin Aspart (*Bkc) 100 Units/Ml SUB-Q Not Given TIDWM [facility] Protocol Insulin Glargine 20 units 08/23/25 09:00 Insulin Glargine (*Bkc) 100 Units/Ml SUB-Q On Hold: 08/23/25 09:00 DAILY [facility] Ondansetron HCl 4 mg 08/22/25 12:53 Ondansetron Inj 4 Mg/2 Ml Vial IV PUSH Q4H PRN Nausea Radiology Results: ITS Impressions Toe X-Ray 08/22/25 10:42 Impression: Osteomyelitis Labs Labs: Laboratory Results - last 24 hr 08/23/25 08/23/25 08/23/25 11:21 16:27 19:47 WBC RBC Hgb Hct MCV MCH MCHC RDW Plt Count MPV Immature Gran % (Auto) Neut % (Auto) Lymph % (Auto) [place] % (Auto) Eos % (Auto) Baso % (Auto) Lymph # (Auto) [place] # (Auto) Eos # (Auto) Baso # (Auto) Abs Immat Gran (auto) Absolute Neuts (auto) Absolute Nucleated RBC Nucleated RBC % Sodium Potassium Chloride Carbon Dioxide Anion Gap BUN Creatinine Estim Creat Clear Calc Estimated GFR Glucose POC Capillary Glucose 118 H 137 H 154 H Calcium Total Bilirubin AST ALT Alkaline Phosphatase Total Protein Albumin Vancomycin Trough 08/24/25 08/24/25 08/24/25 00:12 06:04 07:52 WBC 7.4 RBC 4.60 Hgb 13.2 Hct 39.0 MCV 84.8 MCH 28.7 MCHC 33.8 RDW 13.0 Plt Count 267 MPV 9.9 Immature Gran % (Auto) 0.1 Neut % (Auto) 48.2 Lymph % (Auto) 28.8 [place] % (Auto) 10.3 H Eos % (Auto) 11.4 H Baso % (Auto) 1.2 Lymph # (Auto) 2.13 [place] # (Auto) 0.8 H Eos # (Auto) 0.8 H Baso # (Auto) 0.1 Abs Immat Gran (auto) 0.01 Absolute Neuts (auto) 3.6 Absolute Nucleated RBC 0.000 Nucleated RBC % 0.0 Sodium 135 L Potassium 3.5 Chloride 104 Carbon Dioxide 23 Anion Gap 8 BUN 9 D Creatinine 0.66 L Estim Creat Clear Calc 80 Estimated GFR > 60 Glucose 121 H POC Capillary Glucose 139 H Calcium 8.6 Total Bilirubin 1.3 AST 24 ALT 15 Alkaline Phosphatase 75 Total Protein 6.8 Albumin 3.6 Vancomycin Trough 10.7
--- NOTE | 2025-08-24 10:53 | PM.PNGS ---
Progress Note: A&P Assessment and Plan (1) Osteomyelitis of great toe of left foot: Code(s): M86.9 - Osteomyelitis, unspecified Status: Acute Assessment and Plan: improving with antibiotics, will need long-term antibiotics as per ID, await cultures, patient continues to not want any surgical intervention at this point, continue local wound care, no acute surgical issues, will sign off, call with questions or issues Subjective Subjective Date/Time Seen: 08/24/25 10:53 Interval history: no acute issues overnight, reports that toe is feeling better with less pain Review of Systems Review of Systems: All systems reviewed & are unremarkable except as noted in HPI and below Exam Const: General: cooperative, comfortable and no acute distress Resp: Auscultation: clear to auscultation bilaterally Cardio: Rate: regular rate Rhythm: regular rhythm GI: Inspection: normal to inspection Extrem: Other: left toe with decreased induration, minimal drainage Objective Data Vital Signs Vital Signs: Vital Signs - 24 hr 08/23/25 14:00 08/23/25 21:18 08/23/25 22:00 Temperature 36.3 C L 36.3 C L Pulse Rate 89 89 Respiratory Rate 16 14 Blood Pressure 147/92 H 139/86 Pulse Oximetry 99 98 Oxygen Delivery Room Air 08/24/25 05:45 Temperature 36.2 C L Pulse Rate 86 Respiratory Rate 14 Blood Pressure 153/83 H Pulse Oximetry 97 Oxygen Delivery Intake/Output Intake/Output: Intake & Output 08/21/25 08/22/25 08/23/25 08/24/25 23:59 23:59 23:59 23:59 Intake Total 740 2820 1860 Balance 740 2820 1860 Meds/Results Medications: Active Medications Generic Name Dose Route Start Last Admin Trade Name Freq PRN Reason Stop Dose Admin Acetaminophen 650 mg 08/22/25 12:53 08/23/25 06:46 Acetaminophen 325 Mg Tablet PO 650 mg Q4H PRN Administration Mild Pain (1-3) or Fever Hydrocodone Bitart/Acetaminophen 1 tab 08/22/25 13:16 Hydrocodone/Acetaminophen (*Crx) 5-325 Mg Tablet PO Q4H PRN Moderate Pain (4-6) Bisacodyl 5 mg 08/22/25 13:16 Bisacodyl 5 Mg Tablet Ec PO DAILY PRN Constipation Collagenase 1 applic 08/23/25 09:00 08/24/25 09:13 Collagenase Oint 30 Gm Tube TOPICAL 1 applic QAM KAYA Administration Dextrose 12.5 gm 08/22/25 12:53 Dextrose 50% 25 Gm/50 Ml Syringe IV PUSH PRN PRN Hypoglycemia Protocol Glucagon 1 mg 08/22/25 12:53 Glucagon For Inj 1 Mg Vial IM PRN PRN Hypoglycemia Protocol Glucose 15 gm 08/22/25 12:53 Glucose Oral Gel 15 Gm Of Glucse In 37.5 Gm Tube PO PRN PRN Hypoglycemia Protocol Cefepime HCl 2 gm/ Sodium 50 mls @ 100 mls/hr 08/22/25 23:00 08/23/25 23:54 Chloride IVPB Infused Q12H [facility] Infusion Metronidazole 500 mg in 100 mls @ 100 mls/hr 08/22/25 22:00 08/24/25 06:39 Flagyl 500 Mg/Iso Soln 100 Ml IVPB 100 mls/hr Q8HR KAYA Administration Dextrose 1,000 mls @ 100 mls/hr 08/22/25 12:53 Dextrose 5% 1,000 Ml IVPB PRN PRN Hypoglycemia Protocol Vancomycin HCl 1,500 mg in 500 mls @ 250 mls/hr 08/24/25 01:00 08/24/25 06:40 Vancomycin 1,500 Mg/Ns 500 Ml IVPB Infused Q12H [facility] Infusion Insulin Aspart 3 - 6 units 08/22/25 17:00 08/24/25 09:09 Insulin Aspart (*Bkc) 100 Units/Ml SUB-Q Not Given TIDWM [facility] Protocol Insulin Glargine 20 units 08/23/25 09:00 Insulin Glargine (*Bkc) 100 Units/Ml SUB-Q On Hold: 08/23/25 09:00 DAILY [facility] Ondansetron HCl 4 mg 08/22/25 12:53 Ondansetron Inj 4 Mg/2 Ml Vial IV PUSH Q4H PRN Nausea Radiology Results: ITS Impressions Toe X-Ray 08/22/25 10:42 Impression: Osteomyelitis Labs Labs: Laboratory Results - last 24 hr 08/23/25 08/23/25 08/23/25 11:21 16:27 19:47 WBC RBC Hgb Hct MCV MCH MCHC RDW Plt Count MPV Immature Gran % (Auto) Neut % (Auto) Lymph % (Auto) [place] % (Auto) Eos % (Auto) Baso % (Auto) Lymph # (Auto) [place] # (Auto) Eos # (Auto) Baso # (Auto) Abs Immat Gran (auto) Absolute Neuts (auto) Absolute Nucleated RBC Nucleated RBC % Sodium Potassium Chloride Carbon Dioxide Anion Gap BUN Creatinine Estim Creat Clear Calc Estimated GFR Glucose POC Capillary Glucose 118 H 137 H 154 H Calcium Total Bilirubin AST ALT Alkaline Phosphatase Total Protein Albumin Vancomycin Trough 08/24/25 08/24/25 08/24/25 00:12 06:04 07:52 WBC 7.4 RBC 4.60 Hgb 13.2 Hct 39.0 MCV 84.8 MCH 28.7 MCHC 33.8 RDW 13.0 Plt Count 267 MPV 9.9 Immature Gran % (Auto) 0.1 Neut % (Auto) 48.2 Lymph % (Auto) 28.8 [place] % (Auto) 10.3 H Eos % (Auto) 11.4 H Baso % (Auto) 1.2 Lymph # (Auto) 2.13 [place] # (Auto) 0.8 H Eos # (Auto) 0.8 H Baso # (Auto) 0.1 Abs Immat Gran (auto) 0.01 Absolute Neuts (auto) 3.6 Absolute Nucleated RBC 0.000 Nucleated RBC % 0.0 Sodium 135 L Potassium 3.5 Chloride 104 Carbon Dioxide 23 Anion Gap 8 BUN 9 D Creatinine 0.66 L Estim Creat Clear Calc 80 Estimated GFR > 60 Glucose 121 H POC Capillary Glucose 139 H Calcium 8.6 Total Bilirubin 1.3 AST 24 ALT 15 Alkaline Phosphatase 75 Total Protein 6.8 Albumin 3.6 Vancomycin Trough 10.7
[2025-08-24] MEDS: CEFEPIME 2 GM in SODIUM CHLORIDE 0.9% IV 50 ML 100 ML IVPB ×2 (12:16→23:52)
[2025-08-24 14:00] VITALS: BP 148/81; PULSE 86; RESP 14; TEMP 36.6; O2SAT 95
[2025-08-24 21:49] VITALS: BP 143/85; PULSE 85; RESP 16; TEMP 36.9; O2SAT 99
[2025-08-25] MEDS: VANCOMYCIN 1,500 MG/NS 500 ML 1,500 MG/500 ML BAG 250 MG IVPB ×2 (00:18→13:26)
[2025-08-25 06:00] VITALS: BP 128/79; PULSE 83; RESP 14; TEMP 36.9; O2SAT 97
[2025-08-25 07:17] LABS: Hematocrit 40.0 % (37.0-47.0); Hemoglobin 13.3 g/dL (12.0-15.0); Immature Granulocyte Percent A 0.2 % (0-0.5); Lymphocytes Absolute Auto 2.27 K/mm3 (0.9-3.2); Mean Corpuscular HGB Conc 33.3 g/dl (32-36); Mean Corpuscular Hemoglobin 28.3 pg (26-34); Mean Corpuscular Volume 85.1 fl (80-100); Nucleated Red Blood Cells Absolute Auto 0.000 K/mm3 (0.0-0.012); Nucleated Red Blood Cells Perc 0.0 % (0.0-0.2); Platelet Count Result 256 k/mm3 (150-375); Red Blood Count 4.70 M/mm3 (4.2-5.4); White Blood Count 8.1 K/mm3 (4.5-10.0)
--- NOTE | 2025-08-25 07:43 | WPDINFPN2 ---
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 Diabetes mellitus type: type 2 Qualified Code(s): E11.40 - Type 2 diabetes mellitus with diabetic neuropathy, unspecified; Z79.4 - shelter (current) use of insulin Code(s): E11.40 - Type 2 diabetes mellitus with diabetic neuropathy, unspecified Status: Chronic Assessment and Plan: -Hemoglobin A1c 6.8 -Management of DM as per primary service Plan -Await wound culture results -Follow-up blood culture results -Continue Vancomycin IV/Cefepime pending culture results while in-house -If no significant pathogen growth, may consider transition to once weekly Dalvance x 6 doses plus Ciprofloxacin PO for treatment of osteomyelitis of left hallux -Outpatient antimicrobial therapy: Dalvance 1000mg IV x 1 (dose 1), then one week later, Dalvance 500mg IV Qweek x 5 doses; weekly labs: CBC w diff, BMP, ESR, CRP. Fax labs to [phone]; Ciprofloxacin 500mg po Q12hrs x 4 weeks. -Continue local wound care and DM management -Previously counseled patient that DFU and infection can progress despite prolonged antimicrobial therapy and that she may require amputation in the future if there is not healing of ulcer and resolution of infection. She voiced understanding. Discussed with patient. All questions answered. Patient was seen via video telehealth consultation with the assistance of staff. Chart, data, and patient independently reviewed. Patient was located at [facility] while I was located in my [place] office. Received verbal consent from patient. Subjective Date/time seen: 08/25/25 07:43 Interval history: Patient afebrile. She feels better and reports that redness over left hallux has resolved. Review of Systems Review of Systems: All systems reviewed & are unremarkable except as noted in HPI and below Exam Narrative: Gen: NAD, alert and oriented Resp: no tachypnea, normal chest expansion Musc: Left foot- hallux with ulcer with clean dressing in place Derm: no rash Ext: LLE with minimal edema Objective Data Vital Signs Vital Signs: Vital Signs - 24 hr 08/24/25 08:00 08/24/25 14:00 08/24/25 20:00 Temperature 97.9 F Pulse Rate 86 Respiratory Rate 14 Blood Pressure 148/81 H Pulse Oximetry 95 Oxygen Delivery Room Air Room Air 08/24/25 21:49 08/25/25 06:00 Temperature 98.4 F 98.4 F Pulse Rate 85 83 Respiratory Rate 16 14 Blood Pressure 143/85 H 128/79 Pulse Oximetry 99 97 Oxygen Delivery Intake/Output Intake/Output: Intake & Output 08/22/25 08/23/25 08/24/25 08/25/25 23:59 23:59 23:59 23:59 Intake Total 740 2820 5172 600 Balance 740 2820 5172 600 Meds/Results Medications: Active Medications Generic Name Dose Route Start Last Admin Trade Name Freq PRN Reason Stop Dose Admin Acetaminophen 650 mg 08/22/25 12:53 08/23/25 06:46 Acetaminophen 325 Mg Tablet PO 650 mg Q4H PRN Administration Mild Pain (1-3) or Fever Hydrocodone Bitart/Acetaminophen 1 tab 08/22/25 13:16 Hydrocodone/Acetaminophen (*Crx) 5-325 Mg Tablet PO Q4H PRN Moderate Pain (4-6) Bisacodyl 5 mg 08/22/25 13:16 Bisacodyl 5 Mg Tablet Ec PO DAILY PRN Constipation Collagenase 1 applic 08/23/25 09:00 08/24/25 09:13 Collagenase Oint 30 Gm Tube TOPICAL 1 applic QAM KAYA Administration Dextrose 12.5 gm 08/22/25 12:53 Dextrose 50% 25 Gm/50 Ml Syringe IV PUSH PRN PRN Hypoglycemia Protocol Glucagon 1 mg 08/22/25 12:53 Glucagon For Inj 1 Mg Vial IM PRN PRN Hypoglycemia Protocol Glucose 15 gm 08/22/25 12:53 Glucose Oral Gel 15 Gm Of Glucse In 37.5 Gm Tube PO PRN PRN Hypoglycemia Protocol Cefepime HCl 2 gm/ Sodium 50 mls @ 100 mls/hr 08/22/25 23:00 08/25/25 05:18 Chloride IVPB Infused Q12H [facility] Infusion Dextrose 1,000 mls @ 100 mls/hr 08/22/25 12:53 Dextrose 5% 1,000 Ml IVPB PRN PRN Hypoglycemia Protocol Vancomycin HCl 1,500 mg in 500 mls @ 250 mls/hr 08/24/25 01:00 08/25/25 05:18 Vancomycin 1,500 Mg/Ns 500 Ml IVPB Infused Q12H [facility] Infusion Insulin Aspart 3 - 6 units 08/22/25 17:00 08/24/25 17:19 Insulin Aspart (*Bkc) 100 Units/Ml SUB-Q Not Given TIDWM [facility] Protocol Insulin Glargine 20 units 08/23/25 09:00 Insulin Glargine (*Bkc) 100 Units/Ml SUB-Q On Hold: 08/23/25 09:00 DAILY [facility] Ondansetron HCl 4 mg 08/22/25 12:53 Ondansetron Inj 4 Mg/2 Ml Vial IV PUSH Q4H PRN Nausea Radiology Results: ITS Impressions Toe X-Ray 08/22/25 10:42 Impression: Osteomyelitis Labs Labs: Laboratory Results - last 24 hr 08/24/25 08/24/25 08/24/25 06:04 07:52 11:48 WBC 7.4 RBC 4.60 Hgb 13.2 Hct 39.0 MCV 84.8 MCH 28.7 MCHC 33.8 RDW 13.0 Plt Count 267 MPV 9.9 Immature Gran % (Auto) 0.1 Neut % (Auto) 48.2 Lymph % (Auto) 28.8 [place] % (Auto) 10.3 H Eos % (Auto) 11.4 H Baso % (Auto) 1.2 Lymph # (Auto) 2.13 [place] # (Auto) 0.8 H Eos # (Auto) 0.8 H Baso # (Auto) 0.1 Abs Immat Gran (auto) 0.01 Absolute Neuts (auto) 3.6 Absolute Nucleated RBC 0.000 Nucleated RBC % 0.0 Sodium 135 L Potassium 3.5 Chloride 104 Carbon Dioxide 23 Anion Gap 8 BUN 9 D Creatinine 0.66 L Estim Creat Clear Calc 80 Estimated GFR > 60 Glucose 121 H POC Capillary Glucose 139 H 138 H Calcium 8.6 Total Bilirubin 1.3 AST 24 ALT 15 Alkaline Phosphatase 75 Total Protein 6.8 Albumin 3.6 08/24/25 08/24/25 08/25/25 16:53 20:36 06:59 WBC 8.1 RBC 4.70 Hgb 13.3 Hct 40.0 MCV 85.1 MCH 28.3 MCHC 33.3 RDW 13.0 Plt Count 256 MPV 9.4 Immature Gran % (Auto) 0.2 Neut % (Auto) 52.9 Lymph % (Auto) 28.0 [place] % (Auto) 8.8 H Eos % (Auto) 9.4 H Baso % (Auto) 0.7 Lymph # (Auto) 2.27 [place] # (Auto) 0.7 H Eos # (Auto) 0.8 H Baso # (Auto) 0.1 Abs Immat Gran (auto) 0.02 Absolute Neuts (auto) 4.3 Absolute Nucleated RBC 0.000 Nucleated RBC % 0.0 Sodium Potassium Chloride Carbon Dioxide Anion Gap BUN Creatinine Estim Creat Clear Calc Estimated GFR Glucose POC Capillary Glucose 125 H 153 H Calcium Total Bilirubin AST ALT Alkaline Phosphatase Total Protein Albumin
[2025-08-25 07:52] LABS: Alanine Aminotransferase 21 U/L (6-35); Albumin Level 3.5 g/dL (3.5-5.1); Alkaline Phosphatase 74 U/L (38-126); Anion Gap 8 mmol/L (4-12); Aspartate Amino Transferase 34 U/L (14-36); Bilirubin,Total 1.1 mg/dL (0.2-1.3); Blood Urea Nitrogen 7 mg/dL (7-17); Calcium 8.5 mg/dL (8.4-10.2); Carbon Dioxide 24 mmol/L (22-30); Chloride 105 mmol/L (98-107); Estimated CRCL calculation 81 ml/min; Estimated Glomerular Filt Rate > 60; Glucose 121 mg/dL (65-110); Potassium 3.6 mmol/L (3.4-5.0); Sodium 137 mmol/L (137-145); Total Protein 6.5 g/dL (6.3-8.2)
[2025-08-25] MEDS: COLLAGENASE OINT 30 GM TUBE 1 APPLIC TOPICAL (08:34)
[2025-08-25] MEDS: CEFEPIME 2 GM in SODIUM CHLORIDE 0.9% IV 50 ML 100 ML IVPB (10:33)
[2025-08-25 14:00] VITALS: BP 142/80; PULSE 84; RESP 16; TEMP 36.6; O2SAT 98
--- NOTE | 2025-08-25 15:57 | P.PNIM_ITS ---
Progress Note: A&P Assessment and Plan (1) Osteomyelitis of great toe of left foot: Code(s): M86.9 - Osteomyelitis, unspecified Status: Acute Assessment and Plan: * did not meet SIRS criteria. Lactic 0.8 upon admission. No leukocytosis. * left toe XR showed osteomyelitis on 08/22 * left toe infection complicated by diabetes, A1c 6.8% and per patient blood sugars have been controlled at home * started on cefepime, vancomycin, and Flagyl on 08/22 * general surgery consulted, recommended: * Discussed 6 weeks of antibiotics with wound care versus surgical management with a partial left great toe amputation, patient abdomen she would like to avoid surgery and prefers antibiotics * Start Santyl dressings for local wound care * ID consulted * awaiting wound culture * Continue broad spectrum antibiotics and hopeful to tailor therapy once culture results. 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 insulin use: with longwall headgate operator use Qualified Code(s): E11.40 - Type 2 diabetes mellitus with diabetic neuropathy, unspecified; Z79.4 - intermediate project manager (current) use of insulin Code(s): E11.40 - Type 2 diabetes mellitus with diabetic neuropathy, unspecified Status: Chronic Assessment and Plan: * A1C 6.8% on 08/22/25 * currently complicated, see above * hypoglycemia protocol * POC blood glucose ACHS * home medication: Continue Lantus 20u subQ daily (reduced from home dose), hold Tirzepatide * moderate dose SSI TIDWM * Glucose remains well controlled Plan Diet: Diabetic DVT Prophylaxis: SCDs Code Status: Full code Subjective Date/time seen: 08/25/25 15:57 Interval history: 60 y/o F with PMH of diabetes, peripheral neuropathy, and hyperlipidemia presents here with a wound to her left big toe. 08/25/2025 Patient sitting comfortably in bed at time of examination. Denies any chest pain, shortness of breath, N/V/abdominal pain. Wound continues to heal. Pending wound culture, blood cultures NGTD. Continue antibiotics until cultures have resulted. Will need to set up infusion of Dalbavancin [id number] and cipro x4 weeks. Review of Systems Review of Systems: All systems reviewed & are unremarkable except as noted in HPI and below Exam Narrative: General: NAD Eyes: EOMI ENT: neck supple Cardiovascular: Regular rate and rhythm Respiratory: Clear to auscultation, respirations even and unlabored on RA Gastrointestinal: Soft, non tender Genitourinary: no suprapubic tenderness Musculoskeletal: No edema. Left toe dressing CDI. Skin: warm, dry Neuro: Alert. Psych: Mood appropriate Const: General: comfortable and no acute distress Other: , female, nontoxic appearance HENMT: Face/Nose/Sinus: Normal nares present Mouth: Yes moist mucous membranes Eyes: General: appearance normal, both eyes and all related structures Sclera: sclerae normal Pupils: Equal, round and reactive pupils present EOM: EOMs intact bilaterally Resp: Effort & Inspection: normal respiratory effort Auscultation: clear to auscultation bilaterally Cardio: Rate: regular rate Rhythm: regular rhythm Other: S1-S2 present without murmur, rub, ectopy GI: Other: Abdomen soft, nondistended, nontender. Normoactive bowel sounds in all quadrants. Skin: General skin exam: normal color and no rashes or lesions noted Other: approx 1x1 cm, yellow wound bed with purulent drainage and mild surrounding erythema. +odor. Neuro: Cranial nerves: Yes Equal, round and reactive pupils present Speech: normal speech Motor exam (neuro): 5/5 motor strength present throughout Sensory Exam: normal sensation Other: A&O x4 Extrem: General: normal exam except as noted Psych: Mental Status: mental status grossly normal Affect: normal affect Other: Good insight and judgment, very pleasant Objective Data Vital Signs Vital Signs: Vital Signs - 24 hr 08/24/25 20:00 08/24/25 21:49 08/25/25 06:00 Temperature 98.4 F 98.4 F Pulse Rate 85 83 Respiratory Rate 16 14 Blood Pressure 143/85 H 128/79 Pulse Oximetry 99 97 Oxygen Delivery Room Air 08/25/25 08:00 08/25/25 14:00 Temperature 98 F Pulse Rate 84 Respiratory Rate 16 Blood Pressure 142/80 H Pulse Oximetry 98 Oxygen Delivery Room Air Intake/Output Intake/Output: Intake & Output 08/22/25 08/23/25 08/24/25 08/25/25 23:59 23:59 23:59 23:59 Intake Total 740 2820 5172 1010 Balance 740 2820 5172 1010 Meds/Results Medications: Active Medications Generic Name Dose Route Start Last Admin Trade Name Freq PRN Reason Stop Dose Admin Acetaminophen 650 mg 08/22/25 12:53 08/23/25 06:46 Acetaminophen 325 Mg Tablet PO 650 mg Q4H PRN Administration Mild Pain (1-3) or Fever Hydrocodone Bitart/Acetaminophen 1 tab 08/22/25 13:16 Hydrocodone/Acetaminophen (*Crx) 5-325 Mg Tablet PO Q4H PRN Moderate Pain (4-6) Bisacodyl 5 mg 08/22/25 13:16 Bisacodyl 5 Mg Tablet Ec PO DAILY PRN Constipation Collagenase 1 applic 08/23/25 09:00 08/25/25 08:34 Collagenase Oint 30 Gm Tube TOPICAL 1 applic QAM KAYA Administration Dextrose 12.5 gm 08/22/25 12:53 Dextrose 50% 25 Gm/50 Ml Syringe IV PUSH PRN PRN Hypoglycemia Protocol Glucagon 1 mg 08/22/25 12:53 Glucagon For Inj 1 Mg Vial IM PRN PRN Hypoglycemia Protocol Glucose 15 gm 08/22/25 12:53 Glucose Oral Gel 15 Gm Of Glucse In 37.5 Gm Tube PO PRN PRN Hypoglycemia Protocol Cefepime HCl 2 gm/ Sodium 50 mls @ 100 mls/hr 08/22/25 23:00 08/25/25 11:30 Chloride IVPB Infused Q12H KAYA Infusion Dextrose 1,000 mls @ 100 mls/hr 08/22/25 12:53 Dextrose 5% 1,000 Ml IVPB PRN PRN Hypoglycemia Protocol Vancomycin HCl 1,500 mg in 500 mls @ 250 mls/hr 08/24/25 01:00 08/25/25 13:26 Vancomycin 1,500 Mg/Ns 500 Ml IVPB 250 mls/hr Q12H KAYA Administration Insulin Aspart 3 - 6 units 08/22/25 17:00 08/25/25 11:39 Insulin Aspart (*Bkc) 100 Units/Ml SUB-Q Not Given TID[facility] Protocol Insulin Glargine 20 units 08/23/25 09:00 Insulin Glargine (*Bkc) 100 Units/Ml SUB-Q On Hold: 08/23/25 09:00 DAILY [facility] Ondansetron HCl 4 mg 08/22/25 12:53 Ondansetron Inj 4 Mg/2 Ml Vial IV PUSH Q4H PRN Nausea Radiology Results: ITS Impressions Toe X-Ray 08/22/25 10:42 Impression: Osteomyelitis Labs Labs: Laboratory Results - last 24 hr 08/24/25 08/24/25 08/25/25 16:53 20:36 06:59 WBC 8.1 RBC 4.70 Hgb 13.3 Hct 40.0 MCV 85.1 MCH 28.3 MCHC 33.3 RDW 13.0 Plt Count 256 MPV 9.4 Immature Gran % (Auto) 0.2 Neut % (Auto) 52.9 Lymph % (Auto) 28.0 Rich % (Auto) 8.8 H Eos % (Auto) 9.4 H Baso % (Auto) 0.7 Lymph # (Auto) 2.27 Rich # (Auto) 0.7 H Eos # (Auto) 0.8 H Baso # (Auto) 0.1 Abs Immat Gran (auto) 0.02 Absolute Neuts (auto) 4.3 Absolute Nucleated RBC 0.000 Nucleated RBC % 0.0 Sodium 137 Potassium 3.6 Chloride 105 Carbon Dioxide 24 Anion Gap 8 BUN 7 Creatinine 0.65 L Estim Creat Clear Calc 81 Estimated GFR > 60 Glucose 121 H POC Capillary Glucose 125 H 153 H Calcium 8.5 Total Bilirubin 1.1 AST 34 ALT 21 Alkaline Phosphatase 74 Total Protein 6.5 Albumin 3.5 Vancomycin Trough 08/25/25 08/25/2508/25/25 07:46 11:24 11:56 WBC RBC Hgb Hct MCV MCH MCHC RDW Plt Count MPV Immature Gran % (Auto) Neut % (Auto) Lymph % (Auto) Rich % (Auto) Eos % (Auto) Baso % (Auto) Lymph # (Auto) Rich # (Auto) Eos # (Auto) Baso # (Auto) Abs Immat Gran (auto) Absolute Neuts (auto) Absolute Nucleated RBC Nucleated RBC % Sodium Potassium Chloride Carbon Dioxide Anion Gap BUN Creatinine Estim Creat Clear Calc Estimated GFR Glucose POC Capillary Glucose 141 H 134 H Calcium Total Bilirubin AST ALT Alkaline Phosphatase Total Protein Albumin Vancomycin Trough 16.9 Quality VTE Prophylaxis VTE prophylaxis: mechanical ordered
[2025-08-25 21:06] VITALS: BP 134/77; PULSE 80; RESP 16; TEMP 36.2; O2SAT 98
[2025-08-26] MEDS: CEFEPIME 2 GM in SODIUM CHLORIDE 0.9% IV 50 ML 100 ML IVPB ×2 (00:11→11:13)
[2025-08-26] MEDS: VANCOMYCIN 1,500 MG/NS 500 ML 1,500 MG/500 ML BAG 250 MG IVPB ×2 (00:12→13:02)
[2025-08-26 05:26] VITALS: BP 144/78; PULSE 83; RESP 14; TEMP 36.1; O2SAT 96
[2025-08-26 05:31] LABS: Hematocrit 39.0 % (37.0-47.0); Hemoglobin 13.1 g/dL (12.0-15.0); Immature Granulocyte Percent A 0.2 % (0-0.5); Lymphocytes Absolute Auto 2.79 K/mm3 (0.9-3.2); Mean Corpuscular HGB Conc 33.6 g/dl (32-36); Mean Corpuscular Hemoglobin 28.6 pg (26-34); Mean Corpuscular Volume 85.2 fl (80-100); Nucleated Red Blood Cells Absolute Auto 0.000 K/mm3 (0.0-0.012); Nucleated Red Blood Cells Perc 0.0 % (0.0-0.2); Platelet Count Result 243 k/mm3 (150-375); Red Blood Count 4.58 M/mm3 (4.2-5.4); White Blood Count 8.6 K/mm3 (4.5-10.0)
[2025-08-26 05:54] LABS: Alanine Aminotransferase 29 U/L (6-35); Albumin Level 3.5 g/dL (3.5-5.1); Alkaline Phosphatase 71 U/L (38-126); Anion Gap 7 mmol/L (4-12); Aspartate Amino Transferase 47 U/L (14-36); Bilirubin,Total 1.0 mg/dL (0.2-1.3); Blood Urea Nitrogen 7 mg/dL (7-17); Calcium 8.5 mg/dL (8.4-10.2); Carbon Dioxide 25 mmol/L (22-30); Chloride 104 mmol/L (98-107); Estimated CRCL calculation 84 ml/min; Estimated Glomerular Filt Rate > 60; Glucose 124 mg/dL (65-110); Potassium 3.7 mmol/L (3.4-5.0); Sodium 136 mmol/L (137-145); Total Protein 6.4 g/dL (6.3-8.2)
[2025-08-26] MEDS: COLLAGENASE OINT 30 GM TUBE 1 APPLIC TOPICAL (08:56)
--- NOTE | 2025-08-26 12:12 | WPDINFPN2 ---
Progress Note: A&P Assessment and Plan (1) Osteomyelitis of great toe of left foot: Code(s): M86.9 - Osteomyelitis, unspecified Status: Acute Assessment and Plan: -Acute osteomyelitis of left hallux -Wound cultures pending -Patient declining surgical debridement or amputation presently (2) Diabetes mellitus with neuropathy: Qualifiers: Diabetes mellitus photogrammetric tech insulin use: with jail use Diabetes mellitus type: type 2 Qualified Code(s): E11.40 - Type 2 diabetes mellitus with diabetic neuropathy, unspecified; Z79.4 - correction (current) use of insulin Code(s): E11.40 - Type 2 diabetes mellitus with diabetic neuropathy, unspecified Status: Chronic Assessment and Plan: -Hemoglobin A1c 6.8 -Management of DM as per primary service Plan -Await wound culture results -Follow-up blood culture results -Continue Vancomycin IV/Cefepime pending culture results while in-house -If no significant pathogen growth, will transition to once weekly Dalvance x 6 doses plus Ciprofloxacin PO for treatment of osteomyelitis of left hallux (once insurance authorization obtained by respiratory care faculty) -Outpatient antimicrobial therapy: Dalvance 1000mg IV x 1 (dose 1), then one week later, Dalvance 500mg IV Qweek x 5 doses; weekly labs: CBC w diff, BMP, ESR, CRP. Fax labs to [phone]; Ciprofloxacin 500mg po Q12hrs x 4 weeks. -Dalvance outpatient infusion form signed and emailed back to respiratory care faculty on 08/26/25 -If patient is discharged over the weekend and Dalvance has not been arranged, can bridge patient with Doxycycline 100mg po BID X 7 days and start Ciprofloxacin 500mg po BID. Can discontinue Doxycycline PO once patient starts Dalvance as an outpatient and continue Ciprofloxacin PO x 4 week course. -Patient agreeable to oral antimicrobial bridge therapy if she discharges over the weekend. -If patient is not approved for once weekly Dalvancew, she will need to come back to hospital for PICC placement and arrangement of daily IV antimicrobial therapy. Patient voiced understanding and agreed to do so. -Continue local wound care and DM management -Previously counseled patient that DFU and infection can progress despite prolonged antimicrobial therapy and that she may require amputation in the future if there is not healing of ulcer and resolution of infection. She voiced understanding. Discussed with patient. All questions answered. Patient was seen via video telehealth consultation with the assistance of staff. Chart, data, and patient independently reviewed. Patient was located at [facility] while I was located in my [place] office. Received verbal consent from patient. Subjective Date/time seen: 08/26/25 12:12 Interval history: Patient afebrile. Left hallux redness and swelling decreased. Patient feeling better. She would like to go home. Wound culture pending. Review of Systems Review of Systems: All systems reviewed & are unremarkable except as noted in HPI and below Exam Narrative: Gen: NAD, alert and oriented Resp: no tachypnea, normal chest expansion Musc: Left foot- hallux with ulcer with decreasing erythema over dorsal aspect of toe and resolving erythema around ulcer; decreased left hallux swelling Derm: no rash Ext: LLE with minimal edema Objective Data Vital Signs Vital Signs: Vital Signs - 24 hr 08/25/25 14:00 08/25/25 20:45 08/25/25 21:06 Temperature 98 F 97.2 F L Pulse Rate 84 80 Respiratory Rate 16 16 Blood Pressure 142/80 H 134/77 Pulse Oximetry 98 98 Oxygen Delivery Room Air 08/26/25 05:26 Temperature 97.0 F L Pulse Rate 83 Respiratory Rate 14 Blood Pressure 144/78 H Pulse Oximetry 96 Oxygen Delivery Intake/Output Intake/Output: Intake & Output 08/23/25 08/24/25 08/25/25 08/26/25 23:59 23:59 23:59 23:59 Intake Total 2820 5172 2710 1090 Balance 2820 5172 2710 1090 Meds/Results Medications: Active Medications Generic Name Dose Route Start Last Admin Trade Name Freq PRN Reason Stop Dose Admin Acetaminophen 650 mg 08/22/25 12:53 08/23/25 06:46 Acetaminophen 325 Mg Tablet PO 650 mg Q4H PRN Administration Mild Pain (1-3) or Fever Hydrocodone Bitart/Acetaminophen 1 tab 08/22/25 13:16 Hydrocodone/Acetaminophen (*Crx) 5-325 Mg Tablet PO Q4H PRN Moderate Pain (4-6) Bisacodyl 5 mg 08/22/25 13:16 Bisacodyl 5 Mg Tablet Ec PO DAILY PRN Constipation Collagenase 1 applic 08/23/25 09:00 08/26/25 08:56 Collagenase Oint 30 Gm Tube TOPICAL 1 applic QAM KAYA Administration Dextrose 12.5 gm 08/22/25 12:53 Dextrose 50% 25 Gm/50 Ml Syringe IV PUSH PRN PRN Hypoglycemia Protocol Glucagon 1 mg 08/22/25 12:53 Glucagon For Inj 1 Mg Vial IM PRN PRN Hypoglycemia Protocol Glucose 15 gm 08/22/25 12:53 Glucose Oral Gel 15 Gm Of Glucse In 37.5 Gm Tube PO PRN PRN Hypoglycemia Protocol Cefepime HCl 2 gm/ Sodium 50 mls @ 100 mls/hr 08/22/25 23:00 08/26/25 11:13 Chloride IVPB 100 mls/hr Q12H KAYA Administration Dextrose 1,000 mls @ 100 mls/hr 08/22/25 12:53 Dextrose 5% 1,000 Ml IVPB PRN PRN Hypoglycemia Protocol Vancomycin HCl 1,500 mg in 500 mls @ 250 mls/hr 08/24/25 01:00 08/26/25 03:47 Vancomycin 1,500 Mg/Ns 500 Ml IVPB Infused Q12H KAYA Infusion Insulin Aspart 3 - 6 units 08/22/25 17:00 08/26/25 11:27 Insulin Aspart (*Bkc) 100 Units/Ml SUB-Q Not Given TIDWM [facility] Protocol Insulin Glargine 20 units 08/23/25 09:00 Insulin Glargine (*Bkc) 100 Units/Ml SUB-Q On Hold: 08/23/25 09:00 DAILY [facility] Ondansetron HCl 4 mg 08/22/25 12:53 Ondansetron Inj 4 Mg/2 Ml Vial IV PUSH Q4H PRN Nausea Radiology Results: ITS Impressions Toe X-Ray 08/22/25 10:42 Impression: Osteomyelitis Labs Labs: Laboratory Results - last 24 hr 08/25/25 08/25/25 08/25/25 11:56 16:42 19:54 WBC RBC Hgb Hct MCV MCH MCHC RDW Plt Count MPV Immature Gran % (Auto) Neut % (Auto) Lymph % (Auto) [place] % (Auto) Eos % (Auto) Baso % (Auto) Lymph # (Auto) [place] # (Auto) Eos # (Auto) Baso # (Auto) Abs Immat Gran (auto) Absolute Neuts (auto) Absolute Nucleated RBC Nucleated RBC % Sodium Potassium Chloride Carbon Dioxide Anion Gap BUN Creatinine Estim Creat Clear Calc Estimated GFR Glucose POC Capillary Glucose 124 H 179 H Calcium Total Bilirubin AST ALT Alkaline Phosphatase Total Protein Albumin Vancomycin Trough 16.9 08/26/25 08/26/25 08/26/25 05:22 07:23 11:18 WBC 8.6 RBC 4.58 Hgb 13.1 Hct 39.0 MCV 85.2 MCH 28.6 MCHC 33.6 RDW 13.1 Plt Count 243 MPV 9.5 Immature Gran % (Auto) 0.2 Neut % (Auto) 48.9 Lymph % (Auto) 32.5 [place] % (Auto) 8.9 H Eos % (Auto) 8.3 H Baso % (Auto) 1.2 Lymph # (Auto) 2.79 [place] # (Auto) 0.8 H Eos # (Auto) 0.7 H Baso # (Auto) 0.1 Abs Immat Gran (auto) 0.02 Absolute Neuts (auto) 4.2 Absolute Nucleated RBC 0.000 Nucleated RBC % 0.0 Sodium 136 L Potassium 3.7 Chloride 104 Carbon Dioxide 25 Anion Gap 7 BUN 7 Creatinine 0.63 L Estim Creat Clear Calc 84 Estimated GFR > 60 Glucose 124 H POC Capillary Glucose 116 H 175 H Calcium 8.5 Total Bilirubin 1.0 AST 47 H ALT 29 Alkaline Phosphatase 71 Total Protein 6.4 Albumin 3.5 Vancomycin Trough
[2025-08-26 14:00] VITALS: BP 139/74; PULSE 77; RESP 18; TEMP 36.8; O2SAT 98
[2025-08-26 14:20] VITALS: BMI 27.1
--- NOTE | 2025-08-26 14:58 | P.DS_ITS ---
DS: Admitting Diagnosis Discharge Date 08/26/2025 Admitting Diagnosis Osteomyelitis of the great toe the left foot DS: Discharge Diagnosis Discharge Diagnosis (1) Osteomyelitis of great toe of left foot: Code(s): M86.9 - Osteomyelitis, unspecified Status: Acute Assessment and Plan: * did not meet SIRS criteria. Lactic 0.8 upon admission. No leukocytosis. * left toe XR showed osteomyelitis on 08/22 * left toe infection complicated by diabetes, A1c 6.8% and per patient blood sugars have been controlled at home * started on cefepime, vancomycin, and Flagyl on 08/22 * general surgery consulted, recommended: * Discussed 6 weeks of antibiotics with wound care versus surgical management with a partial left great toe amputation, patient abdomen she would like to avoid surgery and prefers antibiotics * Start Santyl dressings for local wound care * ID consulted * awaiting wound culture * Continue broad spectrum antibiotics and hopeful to tailor therapy once culture results. 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 insulin use: with chcf use Diabetes mellitus type: type 2 Qualified Code(s): E11.40 - Type 2 diabetes mellitus with diabetic neuropathy, unspecified; Z79.4 - care home (current) use of insulin Code(s): E11.40 - Type 2 diabetes mellitus with diabetic neuropathy, unspecified Status: Chronic Assessment and Plan: * A1C 6.8% on 08/22/25 * currently complicated, see above * hypoglycemia protocol * POC blood glucose ACHS * home medication: Continue Lantus 20u subQ daily (reduced from home dose), hold Tirzepatide * moderate dose SSI TIDWM * Glucose remains well controlled Plan Diet: Diabetic DVT Prophylaxis: SCDs Code Status: Full code DS: Summary Hospital Course Reason for hospitalization: Toe wound Hospital Course: 60 y/o F with PMH of diabetes, peripheral neuropathy, and hyperlipidemia presents here with a wound to her left big toe. The patient presents here from home on 08/22 for further evaluation of a wound to her left 1st toe. She reports discovery of wound approximately 1 week ago to the tip of her 1st left toe. She denies any known precipitating symptoms. Has poor to no feeling in her feet bilaterally secondary to neuropathy. She reports since noticing it in has continued to worsen and has developed drainage, swelling, and redness. She does not check her feet regularly, but does normally where closed toed shoes when she is awake. She has a history significant for diabetes a reports her glucose at home has been controlled as of late, has remained under 120 at home. She denies previous history of diabetic foot wounds/ulcerations or osteomyelitis. She denies associated fevers, chills, body aches, or diaphoresis. Initial VS at presentation: 97.6? F, HR 87, R 18, 112/88, and 99% on RA. ED workup showed: No leukocytosis, no anemia, normal coags, no significant electrolyte derangements, creatinine 0.8 and GFR >60, glucose 127, A1c 6.8%, lactic 0.8, CRP 0.5. Left toe XR showed osteomyelitis. General surgery consulted regarding osteomyelitis of the great toe of the left foot. They discussed non operative treatment with a long course of 6 weeks of antibiotics/wound care versus surgical management with partial amputation of the left great toe. Patient was fairly adamant about avoiding surgery in a preferred to try antibiotics and local wound care at this time. Surgery discussed chance of requiring surgical intervention despite this course and patient understands and would still like to try antibiotics at this time. Wound cultures ordered and will be followed up in the outpatient setting. During hospitalization, patient continued to progress well. General surgery continued to monitor, agree that patient is improving with antibiotics and continues to deny wanting surgical intervention at this time. Surgery recommends continuing local wound care and signed off on 08/24. We continued to work with Infectious Disease regarding discharge medications for long-term IV antibiotics. Infectious Disease recommends Dalvance 1000 mg x 1 dose for the 1st week with 500 mg once weekly after that for 5 more additional weeks, for a total of 6 doses. The also recommend weekly labs with CBC with differential, BMP, ESR and CRP. The also recommend ciprofloxacin 500 mg p.o. q.12 hours for 4 weeks. Patient is very much wanting to go home at this point. She is otherwise hemodynamically stable and will need a p.o. antibiotic bridge from now until she can get her weekly infusion set up. Care coordination will be working with the infusion center regarding setting this up in the outpatient setting, however the infusion center is not open this weekend from Friday to Friday. They will attempt to set up the weekly infusions on Friday, however the patient will need a p.o. bridge from now until then. Infectious disease recommends ciprofloxacin 500 mg q.12 hours as well as doxycycline 100 mg q.12 hours. Patient is agreeable to this therapy regimen and and voices understanding regarding the risk of not maintaining on IV antibiotic coverage at this point. She is also informed that she may not be approved for the weekly infusions and may need to come back to the hospital for PICC line placement and have an arrangement for daily IV antimicrobial therapy. She also voices agreement and understanding of this process. Patient is otherwise hemodynamically stable at this point for discharging to be discharged home. A elementary educator recommended that the patient be decreased on her at home Lantus regimen as she reportedly takes 26 units of Lantus at home, although while hospitalized her sugars have been very well maintained and she has not needed insulin injections. The educator recommends decreasing from 26 units down to 10 units and have her follow-up with her primary care physician for further management. Patient states that she has a appointment in a few weeks with her PCP and will follow-up with them regarding diabetes management. She will be instructed to continually monitor her blood sugars to avoid any hypoglycemic episodes. Patient is amenable to this plan and voices agreement for all issues discussed. Plan for discharge at this time. Status at Discharge Functional status at discharge: independent ambulation Overall status at discharge: patient is back to baseline Time Spent with Patient Time attestation: Total time spent providing and/or coordinating discharge services: 43 Exam Narrative: General: NAD Eyes: EOMI ENT: neck supple Cardiovascular: Regular rate and rhythm Respiratory: Clear to auscultation, respirations even and unlabored on RA Gastrointestinal: Soft, non tender Genitourinary: no suprapubic tenderness Musculoskeletal: No edema. Left toe dressing CDI. Skin: warm, dry Neuro: Alert. Psych: Mood appropriate Const: General: comfortable and no acute distress Other: , female, nontoxic appearance HENMT: Face/Nose/Sinus: Normal nares present Mouth: Yes moist mucous membranes Eyes: General: appearance normal, both eyes and all related structures Sclera: sclerae normal Pupils: Equal, round and reactive pupils present EOM: EOMs intact bilaterally Resp: Effort & Inspection: normal respiratory effort Auscultation: clear to auscultation bilaterally Cardio: Rate: regular rate Rhythm: regular rhythm Other: S1-S2 present without murmur, rub, ectopy GI: Other: Abdomen soft, nondistended, nontender. Normoactive bowel sounds in all quadrants. Skin: General skin exam: normal color and no rashes or lesions noted Other: approx 1x1 cm, mild surrounding erythema. Minimal drainage, dressing CDI Neuro: Cranial nerves: Yes Equal, round and reactive pupils present Speech: normal speech Motor exam (neuro): 5/5 motor strength present throughout Sensory Exam: normal sensation Other: A&O x4 Extrem: General: normal exam except as noted Psych: Mental Status: mental status grossly normal Affect: normal affect Other: Good insight and judgment, very pleasant DS: Data Data Completed and Pending Labs on day of discharge: Labs from last 24 hours 08/26/25 08/26/25 08/26/25 11:18 07:23 05:22 WBC 8.6 RBC 4.58 Hgb 13.1 Hct 39.0 MCV 85.2 MCH 28.6 MCHC 33.6 RDW 13.1 Plt Count 243 MPV 9.5 Immature Gran % (Auto) 0.2 Neut % (Auto) 48.9 Lymph % (Auto) 32.5 George % (Auto) 8.9 H Eos % (Auto) 8.3 H Baso % (Auto) 1.2 Lymph # (Auto) 2.79 George # (Auto) 0.8 H Eos # (Auto) 0.7 H Baso # (Auto) 0.1 Abs Immat Gran (auto) 0.02 Absolute Neuts (auto) 4.2 Absolute Nucleated RBC 0.000 Nucleated RBC % 0.0 Sodium 136 L Potassium 3.7 Chloride 104 Carbon Dioxide 25 Anion Gap 7 BUN 7 Creatinine 0.63 L Estim Creat Clear Calc 84 Estimated GFR > 60 Glucose 124 H POC Capillary Glucose 175 H 116 H Calcium 8.5 Total Bilirubin 1.0 AST 47 H ALT 29 Alkaline Phosphatase 71 Total Protein 6.4 Albumin 3.5 08/25/25 08/25/25 19:54 16:42 WBC RBC Hgb Hct MCV MCH MCHC RDW Plt Count MPV Immature Gran % (Auto) Neut % (Auto) Lymph % (Auto) George % (Auto) Eos % (Auto) Baso % (Auto) Lymph # (Auto) George # (Auto) Eos # (Auto) Baso # (Auto) Abs Immat Gran (auto) Absolute Neuts (auto) Absolute Nucleated RBC Nucleated RBC % Sodium Potassium Chloride Carbon Dioxide Anion Gap BUN Creatinine Estim Creat Clear Calc Estimated GFR Glucose POC Capillary Glucose 179 H 124 H Calcium Total Bilirubin AST ALT Alkaline Phosphatase Total Protein Albumin Preliminary micro results at discharge 08/22/25 11:24 Blood Culture - Preliminary Blood 08/22/25 10:50 Blood Culture - Preliminary Blood Discharge Plan Discharge Attending physician on discharge: Vince Greenwood Consulting providers: Sandra Orellana; Clementina Rodriguez; Azael Colon; Nadeem Singleton Discharging Clinician: Nadeem Singleton Anticipated Discharge Date/Time: 08/26/25 14:37 Patient Disposition: Home Activity: no straining Diet: diabetic Discharge Instructions: Care Coordination will contact you via telephone to provide information to you regarding your outpatient infusion. Our phone number is [phone] if you have any questions. Discharge disposition: Home Take medications as prescribed. You will be prescribed doxycycline 100 mg to be taken twice daily and ciprofloxacin 500 mg to be taken twice daily until your infusion can be set up with dalbavancin. Care coordination is setting this up for outpatient approval. If approved, will likely occur on Friday with your 1st infusion being on Thursday 08/30 of next week. New doses of dalbavancin will be 1 g for the 1st dose and 500 mg for each dose after that, to be infused once weekly. Your ciprofloxacin will be continued for the next 4 weeks starting on Friday. You will be recommended to obtain weekly blood work, including a CBC, BMP, ESR, and CRP. Fax these results to the following number:[phone] If you are not approved for once weekly Dalvance, you will need to come back to the hospital for PICC line placement and arranged for daily IV antimicrobial therapy Additionally, your blood sugars have been well maintained without the use of Lantus while hospitalized. Your normal at home dose has been 26 units of Lantus, given your stable blood glucose levels, it would be advisable for you to decrease down to 10 units of the Lantus. Ensure that youre monitoring your blood glucose levels regularly and follow-up with your primary care physician regarding long-term management of your diabetes. Monitor blood pressures Take caution while standing, rising, or moving Change positions slowly taking a break between each position change If you standing feel dizzy sit back down and take a break Encouraged to continue with yearly vaccinations Return to the emergency department if he developed sudden shortness of breath, chest pain, nausea, vomiting, upset stomach or intractable diarrhea Return to the emergency department if you develop fever greater than 101.5 Follow-up with the primary care physician within 1-2 weeks Thank you for [facility] for your healthcare needs Patient Instructions: Antibiotic Form Patient Language: Sammarinese Stand Alone Forms: General Discharge Information Follow-up/Referrals: Cy Erickson DO [Primary Care Provider, Family Practice] Discharge Medications: New ciprofloxacin HCl 500 mg tablet 500 mg PO Q12H Qty: 62 0RF doxycycline hyclate 100 mg tablet 100 mg PO DAILY Qty: 10 0RF Continued (DME) blood-glucose meter [Accu-Chek Guide Glucose Meter] Misc See Rx Instructions .Route Qty: 1 0RF Rx Instructions: As directed (DME) lancets [Accu-Chek Softclix Lancets] Misc See Rx Instructions .Route Qty: 100 2RF Rx Instructions: Use to check blood glucose daily. insulin glargine [Lantus U-100 Insulin] 100 unit/mL solution 40 unit subcut DAILY Qty: 10 2RF (DME) Accu-Chek Guide test strips Strip See Rx Instructions .Route Qty: 100 2RF Rx Instructions: Use to check blood glucose level daily. tirzepatide 15 mg/0.5 mL pen injector 15 mg subcut WEEKLY Qty: 2 0RF Other Ambulatory Orders: Basic Metabolic Panel (WEEKLY) Timeframe: 20251007 Location: Determined by Patient Ordered By: Nadeem Singleton Complete Blood Count with Diff (WEEKLY) Timeframe: 20251007 Location: Determined by Patient Ordered By: Nadeem Singleton CRP (Routine) Timeframe: 6 Weeks Location: Determined by Patient Ordered By: Nadeem Singleton Erythrocyte Sedimentation Rate (WEEKLY) Timeframe: 20251007 Location: Determined by Patient Ordered By: Nadeem Singleton Date of admission: 08/23/25 10:00 Primary Care Provider: Cy Erickson Admitting Provider: Mellisa Cardenas Attending physician on admission: Mellisa Cardenas Condition: Stable Quality VTE Prophylaxis VTE prophylaxis: mechanical ordered
== END 2025-08-26 16:10 | disposition home or self-care (01) | DRG 638 ==
LOC: ANHED 12:08 → ANH3MEDSUR 13:27
PROVIDERS: Student in an Organized Health Care Education/Training Program; Admitting Provider Internal Medicine; Emergency Provider Physician Assistant; PCP Family Medicine; Visit Provider Physician Assistant
DX: E11.69 Type 2 diabetes mellitus with other specified complication (principal); M86.172 Other acute osteomyelitis, left ankle and foot; E11.621 Type 2 diabetes mellitus with foot ulcer; L97.522 Non-pressure chronic ulcer of other part of left foot with fat layer exposed; E11.42 Type 2 diabetes mellitus with diabetic polyneuropathy; E78.5 Hyperlipidemia, unspecified
CPT/HCPCS: 36415; 73660; 80053; 80202; 82565; 82948; 83036; 83605; 85025; 85610; 85652; 85730; 86140; 87040; 87070; 87075; 96365; 96366; 96367; 99285; A9270; G0378; J0692; J1836; J3373

== ENCOUNTER 2025-09-15 13:41 | Outpatient (CLI) | payer BC, SELFPAY ==
[2025-09-15 14:31] LABS: Hematocrit 39.8 % (37.0-47.0); Hemoglobin 13.5 g/dL (12.0-15.0); Immature Granulocyte Percent A 0.2 % (0-0.5); Lymphocytes Absolute Auto 2.93 K/mm3 (0.9-3.2); Mean Corpuscular HGB Conc 33.9 g/dl (32-36); Mean Corpuscular Hemoglobin 29.0 pg (26-34); Mean Corpuscular Volume 85.6 fl (80-100); Nucleated Red Blood Cells Absolute Auto 0.000 K/mm3 (0.0-0.012); Nucleated Red Blood Cells Perc 0.0 % (0.0-0.2); Platelet Count Result 253 k/mm3 (150-375); Red Blood Count 4.65 M/mm3 (4.2-5.4); White Blood Count 8.2 K/mm3 (4.5-10.0)
[2025-09-15 14:46] LABS: Alanine Aminotransferase 29 U/L (6-35); Albumin Level 4.0 g/dL (3.5-5.1); Alkaline Phosphatase 75 U/L (38-126); Anion Gap 9 mmol/L (4-12); Aspartate Amino Transferase 30 U/L (14-36); Bilirubin,Total 1.6 mg/dL (0.2-1.3); Blood Urea Nitrogen 12 mg/dL (7-17); Calcium 8.5 mg/dL (8.4-10.2); Carbon Dioxide 25 mmol/L (22-30); Chloride 103 mmol/L (98-107); Estimated Glomerular Filt Rate > 60; Glucose 125 mg/dL (65-110); Potassium 3.9 mmol/L (3.4-5.0); Sodium 137 mmol/L (137-145); Total Protein 7.2 g/dL (6.3-8.2)
--- OUTSIDE RECORDS SUMMARY | 2025-09-15 15:40 | XMS_ITS | Clinical Summary ---
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 Gender Identity Not on file Sexual Orientation Not on file Last Filed Vital Signs Vital Sign Reading Time Taken Comments Blood Pressure 139/90 11/25/2018 1:58 PM DIAL SCREW ASSEMBLER Pulse - - Temperature 36.3 C (97.4 F) 11/25/2018 1:58 PM DIAL SCREW ASSEMBLER Respiratory Rate 16 11/25/2018 1:58 PM DIAL SCREW ASSEMBLER Oxygen Saturation 100% 11/25/2018 1:58 PM DIAL SCREW ASSEMBLER Inhaled Oxygen Concentration - - Weight 99.8 kg (220 lb) 11/25/2018 1:58 PM DIAL SCREW ASSEMBLER Height 172.7 cm (5' 8) 11/25/2018 1:58 PM DIAL SCREW ASSEMBLER Body Mass Index 33.45 11/25/2018 1:58 PM DIAL SCREW ASSEMBLER Plan of Treatment Health Maintenance Due Date [...] 2) 2017 INFLUENZA VACCINE (#1) [address]25 [place] [address] BCBS BLUE ACCESS/TRUE BLUE PPO Care Teams Line Erector Apprentice Relationship Specialty Start Date End Date Marlon Jeronimo MD [address] [facility] [address] [place] [address] PCP - General Internal Medicine 11/25/18
--- OUTSIDE RECORDS SUMMARY | 2025-09-15 15:40 | XMS_ITS | Clinical Summary ---
Author Organization [facility] Address [address] [place] [address] Care Team Providers Care Nutrition Intern Name Role Phone Ki Rodriguez MD Primary Care Provider [phone] Source Comments [facility],non-owned Affiliates and Associated Physician Practices is amultiple site organization consisting of ambulatory clinics and hospital sitesin [place], [place], [place] and [place]. This disclosure is being madepursuant to the Care Everywhere program and may not contain all information available regarding this patient. 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
[2025-09-16 03:49] LABS: CRP < 0.5 mg/dL (<1.0)
== END 2025-09-15 13:42 | disposition home or self-care (01) ==
PROVIDERS: PCP Family Medicine; Visit Provider Family Medicine
DX: M86.9 Osteomyelitis, unspecified (principal)
CPT/HCPCS: 36415; 80053; 85025; 85652; 86140